=== PATIENT | female | born 1965 ===

== ENCOUNTER 2023-02-02 08:19 | Day surgery (SDC) | payer OTHER, SELFPAY ==
--- NOTE | ~2023-02-02 | FL_ITS ---
EXAMINATION: XR BARIUM ENEMA WITH AIR CLINICAL INFORMATION: Incomplete colonoscopy COMPARISON: None available. TECHNIQUE: Single contrast barium enema was performed. FINDINGS: Oral contrast reaches the cecum. There is no reflux into the terminal ileum. There is mild diverticulosis of the colon. No evidence of mass or obstruction is seen. FLUOROSCOPY TIME: Fluoroscopy time 1.6 minutes. 30 saved fluoroscopic images. 22 overhead images. Total dose 3 4 6 mgy. DAP 167 pringle per centimeter squared DOSE AREA PRODUCT: 167 pringle per centimeter squared. FL/FL barium enema w air contrast IMPRESSION: Mild diverticulosis of the colon.
--- OUTSIDE RECORDS SUMMARY | 2023-02-02 08:23 | XMS_ITS | Continuity of Care Document ---
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 Role Phone Anastasia Marquez MD Primary Care Physician [place] [facility] [place](s): 06/09/21 - 06/16/21 [facility] Adult [address] [place] [address]- Encounter Diagnosis Cough(Discharge Diagnosis) - 06/09/21 Attending Physician: Anastasia Marquez MD Allergies, Adverse Reactions, Alerts Substance Reaction Severity Status diclofenac Active Seafood Active Immunizations Given and Recorded Vaccine Date Status Refusal Reason SARS-CoV-2 (COVID-19) mRNA BNT-162b2 vac 11/13/20 Given SARS-CoV-2 (COVID-19) mRNA BNT-162b2 vac 10/23/20 Given influenza virus vaccine, inactivated 1 06/22/20 Gi deborah influenza virus vaccine, inactivated 05/28/15 Give n Influenza Virus Vaccine (oldterm) 06/20/19 Recorde d tetanus-diphtheria toxoids (Td) 05/28/15 Given Varicella Virus Vaccine 02/03/15 Recorded Measles/Mumps/Rubella Virus Vaccine 02/03/15 Recor ded Poliovirus Vaccine, Inactivated 66 Recorded Poliovirus Vaccine, Inactivated 66 Recorded BCG vaccine 66 Recorded 1Result Comment: [facility] [phone] Medications Advair Diskus 250 mcg-50 mcg inhalation powder 1, puffs, Inhalation, 2 times a day, # 60 each, Refills 0, Route to Pharmacy Electronically, [id number], [facility] [id number], 163, cm, 06/09/21 13:10:00 EDT, Height, 98, kg, 04/19/21 14:18:00 EDT, Dry Weight Start Date: 06/14/21 Status: Ordered Albuterol (Eqv-Proventil HFA) 90 mcg/inh inhalation aerosol 2 puffs, Inhalation, Every 6 hours, PRN NEEDED FOR WHEEZING/SOB, # 6.7 each, 5 Refills, [id number], 163, cm, 04/21/21 14:48:00 EDT, Height, 98, kg, 04/19/21 14:18:00 EDT, Dry Weight Start Date: 05/27/21 Status: Ordered amLODIPine 10 mg oral tablet 1 tablet, By Mouth, Daily, # 90 tablet, 1 Refills, [facility] 240[facility], 163, cm, 04/21/21 14:48:00 EDT,Height, 98, kg, 04/19/21 14:18:00 EDT, Dry Weight Start Date: 05/24/21 Status: Ordered codeine-guaifenesin 10 mg-100 mg/5 mL oral syrup 10 mL, By Mouth, Daily at bedtime, PRN Cough, for 12 days, # 60 mL, 0 Refills, Acute 06/27/21 16:12:00 EST, 06/15/21 16:12:00 EST, [facility]/pharmacy #[id number], Partial fill upon patient request if the prescription is for a schedule II opioid drug., 10 mL By Mo... Start Date: 06/15/21 Stop Date: 06/27/21 Status: Ordered CPAP Machine See Instructions, # 1 each, Refills 12, Tot. Refills 12, Maintenance, CPAP AUTO TITRATION @ 6-18 CMH20 ALL PAP SUPPLIES: TUBING, HEADGEAR, CHIN STRAP, CLIMATE CONTROL LINE, FULL FACE/NASAL MASK, HEATED HUMIDIFIER, WATER CHAMBER AND FILTERS DX BRUCE (... Start Date: 12/14/15 Status: Ordered loratadine 10 mg oral tablet 1, tablet, By Mouth, Daily, # 90 tablet, Refills 1, Tot. Refills 0, Maintenance, 02/18/21 15:11:00 EDT, Route to Pharmacy Electronically, [id number], 163, cm, 01/14/21 13:24:00 EDT, Height, 99, kg, 11/23/20 4:28:00 EDT, Dry Weight Start Date: 02/18/21 Status: Ordered losartan 50 mg oral tablet 50 mg, 1, tablet, By Mouth, Daily, # 90 tablet, Refills 1, Tot. Refills 1, Maintenance, 06/15/21 9:18:00 EST, Route to Pharmacy Electronically, [facility]/pharmacy #[id number], Partial fill upon patient request if the prescription is for a schedule II opioid drug.... Start Date: 06/15/21 Stop Date: 12/12/21 Status: Ordered Multivitamin By Mouth, Daily, 0 Refills, Maintenance, 06/08/15 13:58:35 Start Date: 06/08/15 Status: Ordered sertraline 50 mg oral tablet 1 tablet, By Mouth, Daily, # 90 tablet, 1 Refills, [facility] [id number], 163, cm, 04/21/21 14:48:00 EDT,Height, 98, kg, 04/19/21 14:18:00 EDT, Dry Weight Start Date: 05/24/21 Status: Ordered Problem List Condition Effective Dates Status Health Status Inform ant Hyperlipidemia(Confirmed) Active Hypertension(Confirmed) Active Major depression, recurrent(Confirmed) Active Diagnosis Diagnosis Type Effective Dates Health Status Clini domenic Service Informant Cough Discharge Diagnosis 06/09/21 Vital Signs Most recent to oldest [Reference Range]: 1 Height 163 cm (06/09/21 1:10 PM) Social History Social History Type Response Smoking Status Never smoker entered on: 05/14/15 Sex
--- OUTSIDE RECORDS SUMMARY | 2023-02-02 08:23 | XMS_ITS | Continuity of Care Document ---
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 [id number] Medications amLODIPine 10 mg oral tablet 10 mg, 1, tablet, By Mouth, Daily, # 90 tablet, Refills 1, Tot. Refills 1, Maintenance, 11/23/20 14:03:00 EDT, Route to Pharmacy Electronically, [facility]/pharmacy #[id number], 163, cm, 11/23/20 4:28:00 EDT, Height, 99, kg, 11/23/20 4:28:00 EDT, Dry Weight Start Date: 11/23/20 Status: Ordered Augmentin 875 mg-125 mg oral tablet 1 tablet, By Mouth, Every 12 hours, for 10 days, # 20 tablet, 0 Refills, Acute 12/03/20 4:14:00 EDT, 11/23/20 4:14:00 EDT, Tablet, [id number], Partial fill upon patient request if the prescription is for a schedule II opioid drug., 163, cm, 04... Start Date: 11/23/20 Stop Date: 12/03/20 Status: Ordered CPAP Machine See Instructions, # 1 each, Refills 12, Tot. Refills 12, Maintenance, CPAP AUTO TITRATION @ 6-18 CMH20 ALL PAP SUPPLIES: TUBING, HEADGEAR, CHIN STRAP, CLIMATE CONTROL LINE, FULL FACE/NASAL MASK, HEATED HUMIDIFIER, WATER CHAMBER AND FILTERS DX BRUCE (... Start Date: 12/14/15 Status: Ordered Fish Oil 1000 mg oral capsule 1 capsule = 1,000 mg, By Mouth, Daily, # 90 capsule, 0 Refills, Maintenance, 11/07/19 10:55:00 EDT,[facility], 158, cm, 10/29/19 14:34:00 EDT, Height Start Date: 11/07/19 Status: Ordered Macrobid macrocrystals-monohydrate 100 mg oral capsule 1 capsule = 100 mg, By Mouth, 2 times a day, for 7 days, # 14 capsule, 0 Refills, Acute 11/29/20 11:10:00 EDT, 11/22/20 11:10:00 EDT, Capsule, [id number], Partial fill upon patient request ifthe prescription is for a schedule II opioid drug.,... Start Date: 11/22/20 Stop Date: 11/29/20 Status: Ordered Multivitamin By Mouth, Daily, 0 Refills, Maintenance, 06/08/15 13:58:35 Start Date: 06/08/15 Status: Ordered Zoloft 50 mg oral tablet 1 tablet = 50 mg, By Mouth, Daily, # 90 tablet, 1 Refills, Maintenance, 11/23/20 13:18:00 EDT, Tablet, [id number], 163, cm, 11/23/20 4:28:00 EDT, Height, 99, kg, 11/23/20 4:28:00 EDT, Dry Weight Start Date: 11/23/20 Status: Ordered Problem List Condition Effective Dates Status Health Status Inform ant Hyperlipidemia(Confirmed) Active Hypertension(Confirmed) Active Major depression, recurrent(Confirmed) Active Vital Signs Most recent to oldest [Reference Range]: 1 2 Height 163 cm (11/23/20 4:28 AM) 163 cm (11/23/20 2:24 AM) Weight 99 kg (11/23/20 4:28 AM) 99 kg (11/23/20 2:24 AM) Oxygen Saturation [94-100 %] 97 % (11/23/20 4:28 AM) 94 % (11/23/20 2:24 AM) Pulse Rate [55-90 bpm] 87 bpm (11/23/20 4:28 AM) 84 bpm (11/23/20 2:24 AM) Body Mass Index [18.5-24.99] 37.26 *>HHI* (11/23/20 4:28 AM) Blood Pressure [90-138/55-84 mm Hg] 132/ 77mm Hg (11/23/20 4:28 AM) 139/80mm Hg *H* (11/23/20 2:24 AM) Respiratory Rate [16-30 br/min] 18 br/mi n (11/23/20 4:28 AM) 18 br/min (11/23/20 2:24 AM) Temperature [96.8-100.4 DegF] 98.2 DegF (11/23/20 2:24 AM) Mode of Delivery (Oxygen) Room air (11/23/20 4:28 AM) Room air (11/23/20 2:24 AM) Blood pressure sites Arm, left (11/23/20 4:28 AM) Arm, left (11/23/20 2:24 AM) Temperature Route Oral (11/23/20 2:24 AM) Dry Weight 99 kg (11/23/20 4:28 AM) 99 kg (11/23/20 2:24 AM) Weight Obtained Via Standing scale (11/23/20 2:24 AM) Social History Social History Type Response Smoking Status Never smoker entered on: 05/14/15 Sex
--- OUTSIDE RECORDS SUMMARY | 2023-02-02 08:23 | XMS_ITS | Continuity of Care Document ---
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 Refills 1, Maintenance, 11/23/20 14:03:00 EDT, Route to Pharmacy Electronically, [facility]/pharmacy #[id number], 163, cm, 11/23/20 4:28:00 EDT, Height, 99, kg, 11/23/20 4:28:00 EDT, Dry Weight Start Date: 11/23/20 Status: Ordered CPAP Machine See Instructions, # [...] EDT, Height Start Date: 11/07/19 Status: Ordered Multivitamin By Mouth, Daily, 0 Refills, Maintenance, 06/08/15 13:58:35 Start Date: 06/08/15 Status: Ordered Zoloft 50 mg oral tablet 1 tablet = 50 mg, By Mouth, Daily, # 90 tablet, 1 Refills, Maintenance, 11/23/20 13:18:00 EDT, Tablet, [facility]/pharmacy #[id number], 163, cm, 11/23/20 4:28:00 EDT, Height, 99, kg, 11/23/20 4:28:00 EDT, Dry Weight Start Date: 11/23/20 Status: Ordered Problem List Condition Effective Dates Status Health Status Inform ant Hyperlipidemia(Confirmed) Active Hypertension(Confirmed) Active Major depression, recurrent(Confirmed) Active Social History Social History Type Response Smoking Status Never smoker entered on: 05/14/15 Sex
--- OUTSIDE RECORDS SUMMARY | 2023-02-02 08:23 | XMS_ITS | Continuity of Care Document ---
Author Name Unknown Organization [facility] Adult Address [address] [place] [address]- Care Team Providers Care Patent Agent Name Role Phone Anastasia Marquez MD Primary Care Physician Encounter [facility] Date(s): 04/21/21 - 05/21/21 [facility] Adult [address] [place] [address]- Attending Physician: Rasheeda Castro Admitting Physician: AdmtrRasheeda Referring Physician: Admtr, Ar8 Allergies, Adverse Reactions, Alerts Substance Reaction Severity [...] Recorded BCG vaccine 66 Recorded 1Result Comment: [facility] [phone] Medications Advair Diskus 250 mcg-50 mcg inhalation powder 1, puffs, Inhalation, 2 times a day, # 60 each, Refills 0, Route to Pharmacy Electronically, [id number], [facility] ST[facility] [id number], 163, cm, 04/21/21 14:48:00 EDT, Height, 98, kg, 04/19/21 14:18:00 EDT, Dry Weight Start Date: 05/18/21 Status: Ordered Albuterol (Eqv-Proventil HFA) 90 mcg/inh inhalation aerosol 2 puffs, Inhalation, Every 6 hours, PRN NEEDED FOR WHEEZING/SOB, # 6.7 each, 0 Refills, [facility]3347, 163, cm, 04/21/21 14:48:00 EDT, Height, 98, kg, 04/19/21 14:18:00 EDT, Dry Weight Start Date: 05/04/21 Status: Ordered amLODIPine 10 mg oral tablet 10 mg, 1, tablet, By Mouth, Daily, # 90 tablet, Refills 1, Tot. Refills 1, Maintenance, 11/23/20 14:03:00 EDT, Route to Pharmacy Electronically, [facility]/pharmacy #[id number], 163, cm, 11/23/20 4:28:00 EDT, [...] EDT, Height Start Date: 11/07/19 Status: Ordered lisinopril 10 mg oral tablet 10 mg, 1, tablet, By Mouth, Daily, # 90 tablet, Refills 3, Tot. Refills 3, Maintenance, 01/14/21 14:16:00 EDT, Route to Pharmacy Electronically, [facility]/pharmacy #[id number], Partial fill upon patient request if the prescription is for a schedule II opioid drug... Start Date: 01/14/21 Status: Ordered loratadine 10 mg oral tablet 1, tablet, By Mouth, Daily, # 90 tablet, Refills 1, Tot. Refills 0, Maintenance, 02/18/21 15:11:00 EDT, Route to Pharmacy Electronically, [id number], 163, cm, 01/14/21 13:24:00 EDT, Height, 99, kg, 11/23/20 4:28:00 EDT, Dry Weight Start Date: 02/18/21 Status: Ordered Multivitamin By Mouth, Daily, 0 Refills, Maintenance, 06/08/15 13:58:35 Start Date: 06/08/15 Status: Ordered predniSONE 10 mg oral tablet 6 tablet = 60 mg, By Mouth, Daily, 6 tabs qday for 2 days; then 5 for 2 days, then 4, then 3, then 2, then 1, # 42 tablet, 0 Refills, Maintenance, 04/19/21 14:23:00 EDT, Tablet, [facility]/pharmacy #[id number], Partial fill upon patient request if the prescription... Start Date: 04/19/21 Status: Ordered Zoloft 50 mg oral tablet 1 tablet = 50 mg, By Mouth, Daily, # 90 tablet, 1 Refills, Maintenance, 11/23/20 13:18:00 EDT, Tablet, [facility]/pharmacy #[id number], 163, cm, 11/23/20 4:28:00 EDT, Height, 99, kg, 11/23/20 4:28:00 EDT, Dry Weight Start Date: 11/23/20 Status: Ordered Problem List Condition Effective Dates Status Health Status Inform ant Hyperlipidemia(Confirmed) Active Hypertension(Confirmed) Active Major depression, recurrent(Confirmed) Active Social History Social History Type Response Smoking Status Never smoker entered on: 05/14/15 Sex
--- OUTSIDE RECORDS SUMMARY | 2023-02-02 08:23 | XMS_ITS | Continuity of Care Document ---
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 Mortgage Loan Specialist Name Role Phone Jimmy DELATORRE, Anastasia Primary Care Physician [place] [facility]14[place]21 - 07/14/21 [facility] [address] [place] [address]- Allergies, Adverse Reactions, Alerts Substance Reaction Severity Status diclofenac Active Seafood Active Immunizations Given and Recorded Vaccine Date Status Refusal Reason influenza virus vaccine, inactivated 1 06/27/21 Gi deborah influenza virus vaccine, inactivated 2 06/22/20 Gi deborah influenza virus vaccine, inactivated 05/28/15 Give n SARS-CoV-2 (COVID-19) mRNA BNT-162b2 vac 11/13/20 Given SARS-CoV-2 (COVID-19) mRNA BNT-162b2 vac 10/23/20 Given Influenza Virus Vaccine (oldterm) 06/20/19 Recorde d tetanus-diphtheria toxoids (Td) 05/28/15 Given Varicella Virus Vaccine 02/03/15 Recorded Measles/Mumps/Rubella Virus Vaccine 02/03/15 Recor ded Poliovirus Vaccine, Inactivated 66 Recorded Poliovirus Vaccine, Inactivated 66 Recorded BCG vaccine 66 Recorded 1Result Comment: [facility] [id number] 2Result Comment: [facility] [id number] Medications Albuterol (Eqv-Proventil HFA) 90 mcg/inh inhalation aerosol 2 puffs, Inhalation, Every 6 hours, PRN NEEDED FOR WHEEZING/SOB, # 6.7 each, 5 Refills, [facility] 6[facility]75, 163, cm, 04/21/21 14:48:00 EDT, Height, 98, kg, 04/19/21 14:18:00 EDT, Dry Weight Start Date: 05/27/21 Status: Ordered amLODIPine 10 mg oral tablet 1 tablet, By Mouth, Daily, # 90 tablet, 1 Refills, [facility]662, 163, cm, 04/21/21 14:48:00 EDT,Height, 98, kg, 04/19/21 14:18:00 EDT, Dry Weight Start Date: 05/24/21 Status: Ordered CPAP Machine See Instructions, # [...] 02/18/21 15:11:00 EDT, Route to Pharmacy Electronically, [facility] [id number], 163, cm, 01/14/21 13:24:00 EDT, Height, 99, kg, 11/23/20 4:28:00 EDT, Dry Weight Start Date: 02/18/21 Status: Ordered losartan 50 mg oral tablet 50 mg, 1, tablet, By Mouth, Daily, # 90 tablet, Refills 1, Tot. Refills 1, Maintenance, 06/15/21 9:18:00 EST, Route to Pharmacy Electronically, [facility]/pharmacy #[id number], Partial fill upon patient request if the prescription is for a schedule II opioid drug.... Start Date: 06/15/21 Stop Date: 12/12/21 Status: Ordered Multivitamin By Mouth, Daily, 0 Refills, Maintenance, 06/08/15 13:58:35 Start Date: 06/08/15 Status: Ordered sertraline 50 mg oral tablet 1 tablet, By Mouth, Daily, # 90 tablet, 1 Refills, [id number], 163, cm, 04/21/21 14:48:00 EDT,Height, 98, kg, 04/19/21 14:18:00 EDT, Dry Weight Start Date: 05/24/21 Status: Ordered Problem List Condition Effective Dates Status Health Status Inform ant Hyperlipidemia(Confirmed) Active Hypertension(Confirmed) Active Obese class II(Confirmed) Active Major depression, recurrent(Confirmed) Active Social History Social History Type Response Smoking Status Never smoker entered on: 05/14/15 Sex
--- OUTSIDE RECORDS SUMMARY | 2023-02-02 08:23 | XMS_ITS | Continuity of Care Document ---
Author Name Unknown Organization [facility] Address [address] [place] [address]- Care Team Providers Care Field Sales Trainer Name Role Phone Anastasia Marquez MD Primary Care Physician [place] [facility] [place] 06/19/22 - 06/26/22 [facility] [address] [place] [address]- Encounter Diagnosis Hypertension(Discharge Diagnosis) - 06/19/22 Attending Physician: Anastasia Marquez MD Allergies, Adverse Reactions, Alerts Substance Reaction Severity Status diclofenac Active Seafood Active Immunizations Given and Recorded Vaccine Date Status Refusal Reason influenza virus vaccine, inactivated 1 06/19/22 Gi deborah influenza virus vaccine, inactivated 2 06/27/21 Gi deborah influenza virus vaccine, inactivated 3 06/22/20 Gi deborah influenza virus vaccine, inactivated 05/07/19 Richard rded influenza virus vaccine, inactivated 05/28/15 Give n [id number] 12y+ bivalent booster vax 05/12/22 Recorded SARS-CoV-2 mRNA ([id number]) vax 03/02/22 Recorded SARS-CoV-2 (COVID-19) mRNA BNT-162b2 vac 05/28/21 Recorded SARS-CoV-2 (COVID-19) mRNA BNT-162b2 vac 11/13/20 Given SARS-CoV-2 (COVID-19) mRNA BNT-162b2 vac 10/23/20 Given Influenza Virus Vaccine (oldterm) 06/20/19 Recorde d tetanus-diphtheria toxoids (Td) 05/28/15 Given Varicella Virus Vaccine 02/03/15 Recorded Measles/Mumps/Rubella Virus Vaccine 02/03/15 Recor ded Poliovirus Vaccine, Inactivated 66 Recorded Poliovirus Vaccine, Inactivated 66 Recorded BCG vaccine 66 Recorded 1Result Comment: [facility]: [id number] 2Result Comment: [facility] [id number] 3Result Comment: [facility] [phone] Medications Albuterol (Eqv-Proventil HFA) 90 mcg/inh inhalation aerosol 2 puffs, Inhalation, Every 6 hours, PRN NEEDED FOR WHEEZING/SOB, # 6.7 each, 5 Refills, [facility], 163, cm, 04/21/21 14:48:00 EDT, Height, 98, kg, 04/19/21 14:18:00 EDT, Dry Weight Start Date: 05/27/21 Status: Ordered amLODIPine 10 mg oral tablet 1 tablet, By Mouth, Daily, # 90 tablet, 0 Refills, Maintenance, 05/04/22 15:35:00 EDT, [facility], 163, cm, 07/01/21 16:10:00 EST, Height, 98, kg, 04/19/21 14:18:00 EDT, Dry Weight Start Date: 05/04/22 Status: Ordered atenolol 50 mg oral tablet 50 mg, 1, tablet, By Mouth, Daily, # 90 tablet, Refills 1, Tot. Refills 1, Maintenance, 06/19/22 16:39:00 EST, Route to Pharmacy Electronically, [facility]/pharmacy #[id number], Partial fill upon patient request if the prescription is for a schedule II opioid drug... Start Date: 06/19/22 Status: Ordered CPAP Machine See Instructions, # 1 each, Refills 12, Tot. Refills 12, Maintenance, CPAP AUTO TITRATION @ 6-18 CMH20 ALL PAP SUPPLIES: TUBING, HEADGEAR, CHIN STRAP, CLIMATE CONTROL LINE, FULL FACE/NASAL MASK, HEATED HUMIDIFIER, WATER CHAMBER AND FILTERS DX BRUCE (... Start Date: 12/14/15 Status: Ordered Flovent HFA 44 mcg/inh inhalation aerosol 2 puffs, Inhalation, 2 times a day, # 11 Gm, 6 Refills, Maintenance, 07/01/21 16:54:00 EST, Aerosol, [facility]/pharmacy #[id number], Partial fill upon patient request if the prescription is for a schedule II opioid drug., 163, cm, 07/01/21 16:10:00 EST, Height, 9... Start Date: 07/01/21 Status: Ordered loratadine 10 mg oral tablet See Instructions, TAKE 1 TABLET BY MOUTH EVERY DAY, # 90 tablet, Refills 1, Instructions Replace Required Details, Route to Pharmacy Electronically, [id number], 163, cm, 07/01/21 16:10:00 EST, Height, 98, kg, 04/19/21 14:18:00 EDT, Dry Weight Start Date: 02/10/22 Status: Ordered losartan 100 mg oral tablet 1 tablet = 100 mg, By Mouth, Daily, # 90 tablet, 1 Refills, Maintenance, 06/19/22 16:38:00 EST, Tablet, [facility]/pharmacy #[id number], Partial fill upon patient request if the prescription is for a schedule II opioid drug., 163, cm, 06/19/22 16:32:00 EST, Height... Start Date: 06/19/22 Status: Ordered Multivitamin By Mouth, Daily, 0 Refills, Maintenance, 06/08/15 13:58:35 Start Date: 06/08/15 Status: Ordered sertraline 50 mg oral tablet 1 tablet, By Mouth, Daily, # 90 tablet, 0 Refills, Maintenance, 05/04/22 15:35:00 EDT, [facility], 163, cm, 07/01/21 16:10:00 EST, Height, 98, kg, 04/19/21 14:18:00 EDT, Dry Weight Start Date: 05/04/22 Status: Ordered Problem List Condition Confirmation Course Effective Dates Status H ealth Status Informant Hyperlipidemia Confirmed Active Hypertension Confirmed Active Obese class II Confirmed Active Major depression, recurrent Confirmed Active Diagnosis Diagnosis Type Effective Dates Health Status inical Service Informant Hypertension Discharge Diagnosis 06/19/22 Vital Signs Most recent to oldest [Reference Range]: 1 2 Height 163 cm (06/19/22 4:32 PM) 163 cm (06/19/22 4:20 PM) Weight 101.9 kg (06/19/22 4:20 PM) Oxygen Saturation [94-100 %] 97 % (06/19/22 4:20 PM) Pulse Rate [55-90 bpm] 83 bpm (06/19/22 4:20 PM) Body Mass Index [18.5-24.99 kg/m2] 38.35 kg/m2 *>HHI* (06/19/22 4:20 PM) Blood Pressure [90-138/55-84 mm Hg] 143/ 81mm Hg *H* (06/19/22 4:32 PM) 147/83mm Hg *H* (06/19/22 4:20 PM) Temperature [96.8-100.4 DegF] 98.3 DegF (06/19/22 4:20 PM) Mode of Delivery (Oxygen) Room air (06/19/22 4:20 PM) Blood pressure sites Arm, left (06/19/22 4:32 PM) Arm, left (06/19/22 4:20 PM) Temperature Route Oral (06/19/22 4:20 PM) Weight Obtained Via Standing scale (06/19/22 4:20 PM) Social History Social History Type Response Smoking Status Never smoker entered on: 05/14/15 Sex Note * Rossana Durant: PERFORM, SIGN, VERIFY Event Display: Patient Education/Instruction Authored Date: [id number] [facility] [place] *[facility] Clinical Summary Name SULLY HIDALGO Age 56 Years 1965 PCP Anastasia Marquez MD PCP Visit Date 06/19/2022 15:22:00 Additional Instructions: Scheduled Appointments?? Future Appointments ?*[facility] ?[address],??[place],??[address] ?Phone:??--?Fax:??-- ?Appt. Date:??07/27/2022?3:45 PM ?Scheduled Provider:??Anastasia Marquez MD Follow-Up Instructions ?? Diagnosis Medications: Please continue your medications until treatment is completed or stopped by your provider. Discuss any questions related to medications with your provider. New Medications [id number] [address], [place] [id number], [phone] Atenolol (atenolol 50 mg oral tablet) 1 tab(s) Oral Daily. Refills: 1. Next Dose: Medications to Continue Taking That Have Changed [facility], [address], [place] [phone], [phone] - Losartan (losartan 100 mg oral tablet) 1 tab(s) Oral Daily. Refills: 1. Next Dose: Medications to Continue with No Changes These medications were not printed or sent to your pharmacy Albuterol (Albuterol (Eqv-Proventil HFA) 90 mcg/inh inhalation aerosol) 2 puff(s) Inhalation every 6 hours as needed NEEDED FOR WHEEZING/SOB. Refills: 5. Next Dose: Amlodipine (amLODIPine 10 mg oral tablet) 1 tab(s) Oral Daily. Refills: 0. Next Dose: Durable Medical Equipment (CPAP Machine) CPAP AUTO TITRATION @ 6-18 CM H20 ALL PAP SUPPLIES: TUBING, HEADGEAR, CHIN STRAP, CLIMATE CONTROL LINE, FULL FACE/NASAL MASK, HEATED HUMIDIFIER, WATER CHAMBER AND FILTERS DX [facility] BH[facility]. Refills: 12. Next Dose: Fluticasone (Flovent HFA 44 mcg/inh inhalation aerosol) 2 puff(s) Inhalation twice a day. Refills: 6. Next Dose: Loratadine (loratadine 10 mg oral tablet) TAKE 1 TABLET BY MOUTH EVERY DAY. Refills: 1. Next Dose: Multivitamin Oral Daily. Next Dose: Sertraline (sertraline 50 mg oral tablet) 1 tab(s) Oral Daily. Refills: 0. Next Dose: Allergy Info:?? Seafood; diclofenac Medications Given This Visit Medication Dose Route influenza virus vaccine, inactivated (influenza virus, inactivated vacc) 0.5 mL Intramuscular Future Orders ?No future orders Vital Signs Height 163 cm Weight 101.9 kg BMI 38.35 kg/m2 Blood Pressure 143 mm Hg/81 mm Hg Temperature 98.3 DegF Pulse Rate 83 bpm Respiratory Rate 02 Sat Mode of Delivery 97 %/Room air You can now view a summary of your hospital visit from the comfort of your home through a free online portal called [employer]. [employer] is a website that allows you to securely view your medical information including discharge summary, medications and follow-up visits. ??You can alsosend a secure electronic message to your doctor???s office to request appointments, renew medications or just ask a question. You can enroll at [email or web address] or register during your next office visit. Disclaimer:?? The information provided is of a general nature and is intended to be used in conjunction with the recommendations and advice of your health care practitioner. ??Every effort has been made to ensure that the information provided is accurate and complete at the time it is provided to you however, as your needs change, or, as new ??information becomes available, different or additional instructions may be required. If you have questions, please consult with your primary care provider or pharmacist, as appropriate. ??This information is not intended to serve as substitution for assessment and evaluation by a qualified health care provider. If you do not have a primary care provider, you may find a [facility] provider by calling [facility] [employer] [facility] at [phone]. For information about the plan of care including goals and instructions for your diagnosis, please see the patient education orders section of this document. Patient Education Materials?? The content of this educational material or handout may have been modified, supplemented, or adapted from its original content and format to support your individualized medical care. Patient Care team information Care Team Personnel Name: Anastasia Marquez MD Position: [facility] Primary Care Physician Member Role: PCP Address: Address: [address] [place] [address]- Care Team Related Persons Name: BRANDON ZELAYA Address: home [address] [place] [address]
--- OUTSIDE RECORDS SUMMARY | 2023-02-02 08:23 | XMS_ITS | Continuity of Care Document ---
Author Name Unknown Organization [facility] Address [address] [place] [address]- Care Team Providers Care Head Of Transport Logistics Name Role Phone Jimmy DELATORRE, Anastasia Primary Care Physician [phone] [place] [facility] [place] 08[place]18/21 [facility] [address] [place] [address]- Attending Physician: Anastasia Marquez MD Allergies, Adverse [...] Recorded BCG vaccine 66 Recorded 1Result Comment: [facility] [id number] 2Result Comment: [facility] [phone] Medications Albuterol (Eqv-Proventil HFA) 90 mcg/inh inhalation aerosol 2 puffs, Inhalation, Every 6 hours, PRN NEEDED FOR WHEEZING/SOB, # 6.7 each, 5 Refills, [facility], 163, cm, 04/21/21 14:48:00 EDT, Height, 98, kg, 04/19/21 14:18:00 EDT, Dry Weight Start Date: 05/27/21 Status: Ordered amLODIPine 10 mg oral tablet 1 tablet, By Mouth, Daily, # 90 tablet, 1 Refills, [facility], 163, cm, 04/21/21 14:48:00 EDT,Height, 98, kg, [...] Mouth, Daily, # 90 tablet, Refills 1, Route to Pharmacy Electronically, [facility] 24280, 163, cm, 07/01/21 16:10:00 EST, Height, 98, kg, 04/19/21 14:18:00 EDT, Dry Weight Start Date: 08/16/21 Status: Ordered losartan 50 mg oral tablet 50 mg, 1, tablet, By Mouth, Daily, # 90 tablet, Refills 1, Tot. Refills 1, Maintenance, 06/15/21 9:18:00 EST, Route to Pharmacy Electronically, [facility]/pharmacy #[id number], Partial fill upon patient request if the prescription is for a schedule II opioid drug.... Start Date: 06/15/21 Stop Date: 12/12/21 Status: Ordered Multivitamin By Mouth, Daily, 0 Refills, Maintenance, 06/08/15 13:58:35 Start Date: 06/08/15 Status: Ordered sertraline 50 mg oral tablet 1 tablet, By Mouth, Daily, # 90 tablet, 1 Refills, [facility] 8[facility]96, 163, cm, 04/21/21 14:48:00 EDT,Height, 98, kg, 04/19/21 14:18:00 EDT, Dry Weight Start Date: 05/24/21 Status: Ordered Problem List Condition Effective Dates Status Health Status Inform ant Hyperlipidemia(Confirmed) Active Hypertension(Confirmed) Active Obese class II(Confirmed) Active Major depression, recurrent(Confirmed) Active Social History Social History Type Response Smoking Status Never smoker entered on: 05/14/15 Sex
--- OUTSIDE RECORDS SUMMARY | 2023-02-02 08:23 | XMS_ITS | Continuity of Care Document ---
Author Name Unknown Organization [facility] Address [address] [place] [address]- Care Team Providers Care Sound Effects Person Name Role Phone Jimmy DELATORRE, Anastasia Primary Care Physician [phone] Encounter [facility] Date(s): 12/13/20 - 01/12/21 [facility] [address] [place] [id number] Attending Physician: AdmRasheeda stafford Admitting Physician: Admtr, Ar8 Referring Physician: Admtr, Ar8 Allergies, Adverse Reactions, [...] Recorded BCG vaccine 66 Recorded 1Result Comment: [facility] [phone] Medications amLODIPine 10 mg oral tablet 10 mg, 1, tablet, By Mouth, Daily, # 90 tablet, Refills 1, Tot. Refills 1, Maintenance, 11/23/20 14:03:00 EDT, Route to Pharmacy Electronically, [facility]/pharmacy #[id number], 163, cm, 11/23/20 4:28:00 EDT, Height, [...] Refills, Maintenance, 11/23/20 13:18:00 EDT, Tablet, [facility]/pharmacy #0315, 163, cm, 11/23/20 4:28:00 EDT, Height, 99, kg, 11/23/20 4:28:00 EDT, Dry Weight Start Date: 11/23/20 Status: Ordered Problem List Condition Effective Dates Status Health Status Inform ant Hyperlipidemia(Confirmed) Active Hypertension(Confirmed) Active Major depression, recurrent(Confirmed) Active Social History Social History Type Response Smoking Status Never smoker entered on: 05/14/15 Sex
--- OUTSIDE RECORDS SUMMARY | 2023-02-02 08:23 | XMS_ITS | Continuity of Care Document ---
Author Name Unknown Organization [facility] Address [address] [place] [address]- Care Team Providers Care Waste Handling Technician Name Role Phone Jimmy DELATORRE, Anastasia Primary Care Physician [place] [facility] [place]s): 03/31/21 - 04/30/21 [facility] [address] [place] [address]- Allergies, Adverse Reactions, Alerts Substance Reaction Severity [...] Recorded BCG vaccine 66 Recorded 1Result Comment: [facility] [phone] Medications Advair Diskus 250 mcg-50 mcg inhalation powder 1, puffs, Inhalation, 2 times a day, # 60 each, Refills 0, Tot. Refills 0, Maintenance, 04/21/21 16:25:00 EDT, Powder, Route to Pharmacy Electronically, [id number], [facility]/pharmacy #[id number], 163, cm, 04/21/21 14:48:00 EDT, Height,... Start Date: 04/21/21 Status: Ordered albuterol CFC free 90 mcg/inh inhalation aerosol 2, puffs, Inhalation, Every 6 hours, PRN, # 1 each, Refills 0, Tot. Refills 0, Maintenance, 04/07/21 15:35:00 EDT, Route to Pharmacy Electronically, [id number], [facility]/pharmacy#0315, 163, cm, 04/07/21 12:12:00 EDT, Height, 99,... Start Date: 04/07/21 Status: Ordered amLODIPine 10 mg oral tablet 10 mg, 1, tablet, By Mouth, Daily, # 90 tablet, Refills 1, Tot. Refills 1, Maintenance, 11/23/20 14:03:00 EDT, Route to Pharmacy Electronically, [facility]/pharmacy #0315, 163, cm, 11/23/20 4:28:00 EDT, Height, [...] 0 Refills, Maintenance, 11/07/19 10:55:00 EDT,[facility], 158, cm, 10/29/19 14:34:00 EDT, Height Start Date: 11/07/19 Status: Ordered lisinopril 10 mg oral tablet 10 mg, 1, tablet, By Mouth, Daily, # 90 tablet, Refills 3, Tot. Refills 3, Maintenance, 01/14/21 14:16:00 EDT, Route to Pharmacy Electronically, [facility]/pharmacy #[id number], Partial fill upon patient request if the prescription is for a schedule II opioid drug... Start Date: 01/14/21 Status: Ordered loratadine 10 mg oral tablet 1, tablet, By Mouth, Daily, # 90 tablet, Refills 1, Tot. Refills 0, Maintenance, 02/18/21 15:11:00 EDT, Route to Pharmacy Electronically, [facility] STORE 88820, 163, cm, 01/14/21 13:24:00 EDT, Height, 99, [...] 0 Refills, Maintenance, 04/19/21 14:23:00 EDT, Tablet, [facility]/pharmacy #0315, Partial fill upon patient request if the prescription... Start Date: 04/19/21 Status: Ordered Zoloft 50 mg oral tablet 1 tablet = 50 mg, By Mouth, Daily, # 90 tablet, 1 Refills, Maintenance, 11/23/20 13:18:00 EDT, Tablet, [facility]/pharmacy #0315, 163, cm, 11/23/20 4:28:00 EDT, Height, 99, kg, 11/23/20 4:28:00 EDT, Dry Weight Start Date: 11/23/20 Status: Ordered Problem List Condition Effective Dates Status Health Status Inform ant Hyperlipidemia(Confirmed) Active Hypertension(Confirmed) Active Major depression, recurrent(Confirmed) Active Social History Social History Type Response Smoking Status Never smoker entered on: 05/14/15 Sex
--- OUTSIDE RECORDS SUMMARY | 2023-02-02 08:23 | XMS_ITS | Continuity of Care Document ---
Author Name Unknown Organization [facility] Address [address] [place] [address]- Care Team Providers Care Manager Culinary Name Role Phone Jimmy DELATORRE, Anastasia Primary Care Physician Encounter [facility] [place] Date(s): 01/21/21 - 02/20/21 [facility] [address] [place] [address]- Attending Physician: Rasheeda Castro Admitting Physician: Rasheeda Castro Referring Physician: AdmtrRasheeda Allergies, Adverse Reactions, Alerts Substance Reaction Severity [...] Recorded BCG vaccine 66 Recorded 1Result Comment: [facility] [id number] Medications amLODIPine 10 mg oral tablet 10 mg, 1, tablet, By Mouth, Daily, # 90 tablet, Refills 1, Tot. Refills 1, Maintenance, 11/23/20 14:03:00 EDT, Route to Pharmacy Electronically, [facility]/pharmacy #0315, 163, cm, 11/23/20 4:28:00 EDT, Height, [...] 01/14/21 14:16:00 EDT, Route to Pharmacy Electronically, [facility]/pharmacy #0315, Partial fill upon patient request if the prescription is for a schedule II opioid drug... Start Date: 01/14/21 Status: Ordered loratadine 10 mg oral tablet 1, tablet, By Mouth, Daily, # 90 tablet, Refills 1, Tot. Refills 0, Maintenance, 02/18/21 15:11:00 EDT, Route to Pharmacy Electronically, [facility] ST[facility] 37698, 163, cm, 01/14/21 13:24:00 EDT, Height, 99, kg, 11/23/20 4:28:00 EDT, Dry Weight Start Date: 02/18/21 Status: Ordered Multivitamin By Mouth, Daily, 0 Refills, Maintenance, 06/08/15 13:58:35 Start Date: 06/08/15 Status: Ordered Zoloft 50 mg oral tablet 1 tablet = 50 mg, By Mouth, Daily, # 90 tablet, 1 Refills, Maintenance, 11/23/20 13:18:00 EDT, Tablet, [facility]/pharmacy #0315, 163, cm, 11/23/20 4:28:00 EDT, Height, 99, kg, 11/23/20 4:28:00 EDT, Dry Weight Start Date: 11/23/20 Status: Ordered Problem List Condition Effective Dates Status Health Status Inform ant Hyperlipidemia(Confirmed) Active Hypertension(Confirmed) Active Major depression, recurrent(Confirmed) Active Social History Social History Type Response Smoking Status Never smoker entered on: 05/14/15 Sex
--- OUTSIDE RECORDS SUMMARY | 2023-02-02 08:23 | XMS_ITS | Continuity of Care Document ---
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 Name Role Phone Jimmy DELATORRE, Anastasia Primary Care Physician En[place] [facility] [place] Date(s): 06/21/21 - 07/21/21 [facility] [address] [place] [address]- Allergies, Adverse Reactions, Alerts Substance Reaction Severity [...] Recorded BCG vaccine 66 Recorded 1Result Comment: [facility] [id number] 2Result Comment: [facility] [phone] Medications Albuterol (Eqv-Proventil HFA) 90 mcg/inh inhalation aerosol 2 puffs, Inhalation, Every 6 hours, PRN NEEDED FOR WHEEZING/SOB, # 6.7 each, 5 Refills, [facility] 8[facility]74, 163, cm, 04/21/21 14:48:00 EDT, Height, 98, kg, 04/19/21 14:18:00 EDT, Dry Weight Start Date: 05/27/21 Status: Ordered amLODIPine 10 mg oral tablet 1 tablet, By Mouth, Daily, # 90 tablet, 1 Refills, [facility] 7[facility], 163, cm, 04/21/21 14:48:00 EDT,Height, 98, kg, [...] 02/18/21 15:11:00 EDT, Route to Pharmacy Electronically, [facility] 44961, 163, cm, 01/14/21 13:24:00 EDT, Height, 99, kg, 11/23/20 4:28:00 EDT, Dry Weight Start Date: 02/18/21 Status: Ordered losartan 50 mg oral tablet 50 mg, 1, tablet, By Mouth, Daily, # 90 tablet, Refills 1, Tot. Refills 1, Maintenance, 06/15/21 9:18:00 EST, Route to Pharmacy Electronically, [facility]/pharmacy #6025, Partial fill upon patient request if the prescription is for a schedule II opioid drug.... Start Date: 06/15/21 Stop Date: 12/12/21 Status: Ordered Multivitamin By Mouth, Daily, 0 Refills, Maintenance, 06/08/15 13:58:35 Start Date: 06/08/15 Status: Ordered sertraline 50 mg oral tablet 1 tablet, By Mouth, Daily, # 90 tablet, 1 Refills, [facility] 91488, 163, cm, 04/21/21 14:48:00 EDT,Height, 98, kg, 04/19/21 14:18:00 EDT, Dry Weight Start Date: 05/24/21 Status: Ordered Problem List Condition Effective Dates Status Health Status Inform ant Hyperlipidemia(Confirmed) Active Hypertension(Confirmed) Active Obese class II(Confirmed) Active Major depression, recurrent(Confirmed) Active Social History Social History Type Response Smoking Status Never smoker entered on: 05/14/15 Sex
--- OUTSIDE RECORDS SUMMARY | 2023-02-02 08:23 | XMS_ITS | Continuity of Care Document ---
Author Name Unknown Organization [facility] Address [address] [place] [address]- Care Team Providers Care Director Internal Communications Name Role Phone Jimmy DELATORRE, Anastasia Primary Care Physician [place] [facility] [place] Date(s): 06/21/21 - 07/21/21 [facility] [address] [place] [address]- Allergies, Adverse Reactions, Alerts Substance Reaction Severity [...] Recorded BCG vaccine 66 Recorded 1Result Comment: [facility] [id number] 2Result Comment: [facility] [phone] Medications Albuterol (Eqv-Proventil HFA) 90 mcg/inh inhalation aerosol 2 puffs, Inhalation, Every 6 hours, PRN NEEDED FOR WHEEZING/SOB, # 6.7 each, 5 Refills, [facility] 87944, 163, cm, 04/21/21 14:48:00 EDT, Height, 98, kg, 04/19/21 14:18:00 EDT, Dry Weight Start Date: 05/27/21 Status: Ordered amLODIPine 10 mg oral tablet 1 tablet, By Mouth, Daily, # 90 tablet, 1 Refills, [facility] 54238, 163, cm, 04/21/21 14:48:00 EDT,Height, 98, kg, [...] 02/18/21 15:11:00 EDT, Route to Pharmacy Electronically, [facility] 45296, 163, cm, 01/14/21 13:24:00 EDT, Height, 99, kg, 11/23/20 4:28:00 EDT, Dry Weight Start Date: 02/18/21 Status: Ordered losartan 50 mg oral tablet 50 mg, 1, tablet, By Mouth, Daily, # 90 tablet, Refills 1, Tot. Refills 1, Maintenance, 06/15/21 9:18:00 EST, Route to Pharmacy Electronically, [facility]/pharmacy #0315, Partial fill upon patient request if the prescription is for a schedule II opioid drug.... Start Date: 06/15/21 Stop Date: 12/12/21 Status: Ordered Multivitamin By Mouth, Daily, 0 Refills, Maintenance, 06/08/15 13:58:35 Start Date: 06/08/15 Status: Ordered sertraline 50 mg oral tablet 1 tablet, By Mouth, Daily, # 90 tablet, 1 Refills, [facility] 07833, 163, cm, 04/21/21 14:48:00 EDT,Height, 98, kg, 04/19/21 14:18:00 EDT, Dry Weight Start Date: 05/24/21 Status: Ordered Problem List Condition Effective Dates Status Health Status Inform ant Hyperlipidemia(Confirmed) Active Hypertension(Confirmed) Active Obese class II(Confirmed) Active Major depression, recurrent(Confirmed) Active Social History Social History Type Response Smoking Status Never smoker entered on: 05/14/15 Sex
--- OUTSIDE RECORDS SUMMARY | 2023-02-02 08:23 | XMS_ITS | Continuity of Care Document ---
Author Name Unknown Organization [facility] Adult Address [address] [place] [address]- Care Team Providers Care Water And Sewer Systems Superintendent Name Role Phone Anastasia Marquez MD Primary Care Physician Encounter [facility] [facility] Date(s): 11/22/20 - 11/29/20 [facility] Adult [address] [place] [address]- Encounter Diagnosis Dysuria(Discharge Diagnosis) - 11/22/20 Attending Physician: Shikha Thomson NP Referring Physician: Anastasia Marquez MD Allergies, Adverse Reactions, [...] Recorded BCG vaccine 66 Recorded 1Result Comment: [facility] [id number] Medications amLODIPine 10 mg oral tablet 10 mg, 1, tablet, By Mouth, Daily, # 90 tablet, Refills 1, Tot. Refills 1, Maintenance, 11/23/20 14:03:00 EDT, Route to Pharmacy Electronically, [facility]/pharmacy #0315, 163, cm, 11/23/20 4:28:00 EDT, Height, [...] Dates Health Status Clini domenic Service Informant Dysuria Discharge Diagnosis 11/22/20 Vital Signs Most recent to oldest [Reference Range]: 1 Height 158 cm (11/22/20 7:28 AM) Weight 93.1 kg (11/22/20 7:28 AM) Pulse Rate [55-90 bpm] 96 bpm *H* (11/22/20 7:28 AM) Body Mass Index [18.5-24.99] 37.29 *>HHI* (11/22/20 7:28 AM) Blood Pressure [90-138/55-84 mm Hg] 160/ 113mm Hg *H* (11/22/20 7:28 AM) Blood pressure sites Arm, left (11/22/20 7:28 AM) Weight Obtained Via Patient/family state d (11/22/20 7:28 AM) Social History Social History Type Response Smoking Status Never smoker entered on: 05/14/15 Sex
--- OUTSIDE RECORDS SUMMARY | 2023-02-02 08:23 | XMS_ITS | Continuity of Care Document ---
Author Name Unknown Organization [facility] Address [address] [place] [address]- Care Team Providers Care Dopeman Name Role Phone Jimmy DELATORRE, Anastasia Primary Care Physician Encounter [facility] [place] Date(s): 12/03/20 - 01/02/21 [facility] [address] [place] [address]- Attending Physician: Admtr, Rasheeda Admitting Physician: Admtr, Ar8 Referring Physician: Admtr, [...] Recorded BCG vaccine 66 Recorded 1Result Comment: [facility] [id number] Medications amLODIPine 10 mg oral tablet 10 mg, 1, tablet, By Mouth, Daily, # 90 tablet, Refills 1, Tot. Refills 1, Maintenance, 11/23/20 14:03:00 EDT, Route to Pharmacy Electronically, [facility]/pharmacy #0315, 163, cm, 11/23/20 4:28:00 EDT, [...] 0 Refills, Maintenance, 11/07/19 10:55:00 EDT,[facility], 158, cm, 10/29/19 14:34:00 EDT, Height Start Date: 11/07/19 Status: Ordered Multivitamin By Mouth, Daily, 0 Refills, Maintenance, 06/08/15 13:58:35 Start Date: 06/08/15 Status: Ordered Zoloft 50 mg oral tablet 1 tablet = 50 mg, By Mouth, Daily, # 90 tablet, 1 Refills, Maintenance, 11/23/20 13:18:00 EDT, Tablet, [facility]/pharmacy #0315, 163, cm, 11/23/20 4:28:00 EDT, Height, 99, kg, 11/23/20 4:28:00 EDT, Dry Weight Start Date: 11/23/20 Status: Ordered Problem List Condition Effective Dates Status Health Status Inform ant Hyperlipidemia(Confirmed) Active Hypertension(Confirmed) Active Major depression, recurrent(Confirmed) Active Social History Social History Type Response Smoking Status Never smoker entered on: 05/14/15 Sex
--- OUTSIDE RECORDS SUMMARY | 2023-02-02 08:23 | XMS_ITS | Continuity of Care Document ---
Author Name Unknown Organization [facility] Address [address] [place] [address]- Care Team Providers Care Advertising Sales Associate Name Role Phone Jimmy DELATORRE, Anastasia Primary Care Physician [place] [facility] [id number] Date(s): 06/06/21 - 06/13/21 [facility] [address] [place] [address]- Attending Physician: Anastasia Marquez MD Allergies, Adverse [...] vaccine 66 Recorded 1Result Comment: [facility] [id number] Medications Advair Diskus 250 mcg-50 mcg inhalation powder 1, puffs, Inhalation, 2 times a day, # 60 each, Refills 0, Route to Pharmacy Electronically, [id number], [facility] ST[facility] 47397, 163, cm, 04/21/21 14:48:00 EDT, Height, 98, kg, 04/19/21 14:18:00 EDT, Dry Weight Start Date: 05/18/21 Status: Ordered Albuterol (Eqv-Proventil HFA) 90 mcg/inh inhalation aerosol 2 puffs, Inhalation, Every 6 hours, PRN NEEDED FOR WHEEZING/SOB, # 6.7 each, 5 Refills, [facility], 163, cm, 04/21/21 14:48:00 EDT, Height, 98, kg, 04/19/21 14:18:00 EDT, Dry Weight Start Date: 05/27/21 Status: Ordered amLODIPine 10 mg oral tablet 1 tablet, By Mouth, Daily, # 90 tablet, 1 Refills, [facility], 163, cm, 04/21/21 14:48:00 EDT,Height, 98, kg, 04/19/21 14:18:00 EDT, Dry Weight Start Date: 05/24/21 Status: Ordered codeine-guaifenesin 10 mg-100 mg/5 mL oral syrup 10 mL, By Mouth, Daily at bedtime, PRN Cough, for 12 days, # 60 mL, 0 Refills, Acute 06/21/21 14:09:00 EST, 06/09/21 14:09:00 EDT, [facility]/pharmacy #0315, Partial fill upon patient request if the prescription is for a schedule II opioid drug., 10 mL By Mo... Start Date: 06/09/21 Stop Date: 06/21/21 Status: Ordered CPAP Machine See Instructions, # 1 each, Refills 12, Tot. Refills 12, Maintenance, CPAP AUTO TITRATION @ 6-18 CMH20 ALL PAP SUPPLIES: TUBING, HEADGEAR, CHIN STRAP, CLIMATE CONTROL LINE, FULL FACE/NASAL MASK, HEATED HUMIDIFIER, WATER CHAMBER AND FILTERS DX BRUCE (... Start Date: 12/14/15 Status: Ordered lisinopril 10 mg oral tablet 10 mg, 1, tablet, By Mouth, Daily, # 90 tablet, Refills 3, Tot. Refills 3, Maintenance, 01/14/21 14:16:00 EDT, Route to Pharmacy Electronically, [facility]/pharmacy #0315, Partial fill upon patient request if the prescription is for a schedule II opioid drug... Start Date: 01/14/21 Status: Ordered loratadine 10 mg oral tablet 1, tablet, By Mouth, Daily, # 90 tablet, Refills 1, Tot. Refills 0, Maintenance, 02/18/21 15:11:00 EDT, Route to Pharmacy Electronically, [facility], 163, cm, 01/14/21 13:24:00 EDT, Height, 99, kg, 11/23/20 4:28:00 EDT, Dry Weight Start Date: 02/18/21 Status: Ordered Multivitamin By Mouth, Daily, 0 Refills, Maintenance, 06/08/15 13:58:35 Start Date: 06/08/15 Status: Ordered sertraline 50 mg oral tablet 1 tablet, By Mouth, Daily, # 90 tablet, 1 Refills, [facility], 163, cm, 04/21/21 14:48:00 EDT,Height, 98, kg, 04/19/21 14:18:00 EDT, Dry Weight Start Date: 05/24/21 Status: Ordered Problem List Condition Effective Dates Status Health Status Inform ant Hyperlipidemia(Confirmed) Active Hypertension(Confirmed) Active Major depression, recurrent(Confirmed) Active Vital Signs Most recent to oldest [Reference Range]: 1 Height 163 cm (06/06/21 2:19 PM) Social History Social History Type Response Smoking Status Never smoker entered on: 05/14/15 Sex
--- OUTSIDE RECORDS SUMMARY | 2023-02-02 08:24 | XMS_ITS | Continuity of Care Document ---
Author Name Unknown Organization [facility] Address [address] [place] [address]- Care Team Providers Care Manager Garden Name Role Phone Jimmy DELATORRE, Anastasia Primary Care Physician [phone] [place] [facility] [place] 07/06/21 [facility] [address] [place] [address]- Allergies, Adverse Reactions, Alerts Substance Reaction Severity [...] Recorded BCG vaccine 66 Recorded 1Result Comment: [facility] 2[facility] [id number] 2Result Comment: [facility] [id number] Medications Albuterol (Eqv-Proventil HFA) 90 mcg/inh inhalation aerosol 2 puffs, Inhalation, Every 6 hours, PRN NEEDED FOR WHEEZING/SOB, # 6.7 each, 5 Refills, [facility] 48283, 163, cm, 04/21/21 14:48:00 EDT, Height, 98, kg, 04/19/21 14:18:00 EDT, Dry Weight Start Date: 05/27/21 Status: Ordered amLODIPine 10 mg oral tablet 1 tablet, By Mouth, Daily, # 90 tablet, 1 Refills, [facility] 38912, 163, cm, 04/21/21 14:48:00 EDT,Height, 98, kg, [...] 02/18/21 15:11:00 EDT, Route to Pharmacy Electronically, [facility] 12694, 163, cm, 01/14/21 13:24:00 EDT, Height, 99, kg, 11/23/20 4:28:00 EDT, Dry Weight Start Date: 02/18/21 Status: Ordered losartan 50 mg oral tablet 50 mg, 1, tablet, By Mouth, Daily, # 90 tablet, Refills 1, Tot. Refills 1, Maintenance, 06/15/21 9:18:00 EST, Route to Pharmacy Electronically, [facility]/pharmacy #5875, Partial fill upon patient request if the prescription is for a schedule II opioid drug.... Start Date: 06/15/21 Stop Date: 12/12/21 Status: Ordered Multivitamin By Mouth, Daily, 0 Refills, Maintenance, 06/08/15 13:58:35 Start Date: 06/08/15 Status: Ordered sertraline 50 mg oral tablet 1 tablet, By Mouth, Daily, # 90 tablet, 1 Refills, [facility] 13089, 163, cm, 04/21/21 14:48:00 EDT,Height, 98, kg, 04/19/21 14:18:00 EDT, Dry Weight Start Date: 05/24/21 Status: Ordered Problem List Condition Effective Dates Status Health Status Inform ant Hyperlipidemia(Confirmed) Active Hypertension(Confirmed) Active Obese class II(Confirmed) Active Major depression, recurrent(Confirmed) Active Social History Social History Type Response Smoking Status Never smoker entered on: 05/14/15 Sex
--- OUTSIDE RECORDS SUMMARY | 2023-02-02 08:24 | XMS_ITS | Continuity of Care Document ---
Author Name Unknown Organization [facility] Address [address] [place] [address]- Care Team Providers Care Reconciliation Accountant Name Role Phone Anastasia Marquez MD Primary Care Physician [phone] Encounter [facility] [place] Date(s): 11/22/20 - 12/22/20 [facility] [address] [place] [address]- Allergies, Adverse Reactions, Alerts Substance Reaction Severity [...] Recorded BCG vaccine 66 Recorded 1Result Comment: [facility] [id number] Medications amLODIPine 10 mg oral tablet 10 mg, 1, tablet, By Mouth, Daily, # 90 tablet, Refills 1, Tot. Refills 1, Maintenance, 11/23/20 14:03:00 EDT, Route to Pharmacy Electronically, [facility]/pharmacy #0315, 163, cm, 11/23/20 4:28:00 EDT, [...] 1 Refills, Maintenance, 11/23/20 13:18:00 EDT, Tablet, [facility]/pharmacy #0315, 163, cm, 11/23/20 4:28:00 EDT, Height, 99, kg, 11/23/20 4:28:00 EDT, Dry Weight Start Date: 11/23/20 Status: Ordered Problem List Condition Effective Dates Status Health Status Inform ant Hyperlipidemia(Confirmed) Active Hypertension(Confirmed) Active Major depression, recurrent(Confirmed) Active Social History Social History Type Response Smoking Status Never smoker entered on: 05/14/15 Sex
--- OUTSIDE RECORDS SUMMARY | 2023-02-02 08:24 | XMS_ITS | Continuity of Care Document ---
Author Name Unknown Organization [facility] Address [address] [place] [address]- Care Team Providers Care Log Washer Name Role Phone Jimmy DELATORRE, Anastasia Primary Care Physician Encounter [facility] Date(s): 04/19/21 - 04/19/[address] [address]- Discharge Disposition: A-D/C Home Attending Physician: Shayan Jewell MD Admitting Physician: Shayan Jewell MD Referring Physician: Not on Staff, Referring [...] BCG vaccine 66 Recorded 1Result Comment: [facility] [id number] Medications albuterol CFC free 90 mcg/inh inhalation aerosol 2, puffs, Inhalation, Every 6 hours, PRN, # 1 each, Refills 0, Tot. Refills 0, Maintenance, 04/07/21 15:35:00 EDT, Route to Pharmacy Electronically, [id number], [facility], 163, cm, 04/07/21 12:12:00 EDT, Height, 99,... Start Date: 04/07/21 Status: Ordered amLODIPine 10 mg oral tablet 10 mg, 1, tablet, By Mouth, Daily, # 90 tablet, Refills 1, Tot. Refills 1, Maintenance, 11/23/20 14:03:00 EDT, Route to Pharmacy Electronically, [facility]/pharmacy #0315, 163, cm, 11/23/20 4:28:00 EDT, Height, [...] BRUCE (... Start Date: 12/14/15 Status: Ordered doxycycline monohydrate 100 mg oral capsule 1 capsule = 100 mg, By Mouth, 2 times a day, for 7 days, # 14 capsule, 0 Refills, Acute 04/26/21 14:23:00 EDT, 04/19/21 14:23:00 EDT, Capsule, [facility]/pharmacy #0315, Partial fill upon patient request ifthe prescription is for a schedule II opioid drug.,... Start Date: 04/19/21 Stop Date: 04/26/21 Status: Ordered Fish Oil 1000 mg oral [...] 01/14/21 14:16:00 EDT, Route to Pharmacy Electronically, [facility]/pharmacy #0315, Partial fill upon patient request if the prescription is for a schedule II opioid drug... Start Date: 01/14/21 Status: Ordered loratadine 10 mg oral tablet 1, tablet, By Mouth, Daily, # 90 tablet, Refills 1, Tot. Refills 0, Maintenance, 02/18/21 15:11:00 EDT, Route to Pharmacy Electronically, [facility]ORE 09740, 163, cm, 01/14/21 13:24:00 EDT, Height, 99, [...] 0 Refills, Maintenance, 04/19/21 14:23:00 EDT, Tablet, [facility]/pharmacy #0315, Partial fill upon patient request if the prescription... Start Date: 04/19/21 Status: Ordered Zoloft 50 mg oral tablet 1 tablet = 50 mg, By Mouth, Daily, # 90 tablet, 1 Refills, Maintenance, 11/23/20 13:18:00 EDT, Tablet, [facility]/pharmacy #0315, 163, cm, 11/23/20 4:28:00 EDT, Height, 99, kg, 11/23/20 4:28:00 EDT, Dry Weight Start Date: 11/23/20 Status: Ordered Problem List Condition Effective Dates Status Health Status Inform ant Hyperlipidemia(Confirmed) Active Hypertension(Confirmed) Active Major depression, recurrent(Confirmed) Active Results Radiology Reports * Exam Date Time Procedure Performing Provider Status 04/19/21 1:59 PM Chest 2 Views Frontal and Lat Rohit Chowdary; Garth (Verified) Notes: (Chest 2 Views Frontal and Lat) Reason For Exam: Cough RESULT: Chest 2 Views Frontal and Lat Chest 2 Views Frontal and Lat Reason: Cough; Clinical Question(s): Pneumonia COMPARISON: None. FINDINGS: LINES AND TUBES: None. LUNGS AND PLEURA: Clear lungs. Normal pulmonary vascularity. No pleural effusion. No pneumothorax. HEART, MEDIASTINUM AND MICHELL: Heart is normal in size. Normal upper mediastinal and hilar contour. BONES AND SOFT TISSUES: No acute abnormality. IMPRESSION: No acute abnormality. WSN: [id number] Ordering Physician: Robert Hicks Dictated By: Kaveh Pettit MD Dictated Date/Time: 04/19/21 2:02 pm Reviewed By: Kaveh Pettit MD Signed By: Kaveh Pettit MD Signed Date/Time: 04/19/21 2:02 pm Transcribed By: LUISA Transcribed Date/Time: 04/19/21 2:00 pm Vital Signs Most recent to oldest [Reference Range]: 1 2 Height 163 cm (04/19/21 2:18 PM) 163 cm (04/19/21 1:02 PM) Weight 98 kg (04/19/21 2:18 PM) 98 kg (04/19/21 1:02 PM) Oxygen Saturation [94-100 %] 98 % (04/19/21 2:20 PM) 98 % (04/19/21 1:02 PM) Pulse Rate [55-90 bpm] 92 bpm *H* (04/19/21 2:20 PM) 99 bpm *H* (04/19/21 1:02 PM) Body Mass Index [18.5-24.99] 36.89 *>HHI* (04/19/21 1:02 PM) Blood Pressure [90-138/55-84 mm Hg] 164/ 72mm Hg *H* (04/19/21 2:20 PM) Respiratory Rate [16-30 br/min] 18 br/mi n (04/19/21 2:20 PM) 20 br/min (04/19/21 1:02 PM) Temperature [96.8-100.4 DegF] 97.4 DegF (04/19/21 1:02 PM) Mode of Delivery (Oxygen) Room air (04/19/21 2:20 PM) Room air (04/19/21 1:02 PM) Temperature Route Temporal (04/19/21 1:02 PM) Dry Weight 98 kg (04/19/21 2:18 PM) 98 kg (04/19/21 1:02 PM) Weight Obtained Via Patient/family state d (04/19/21 2:18 PM) Dry Weight Obtained Via Patient/family s tated (04/19/21 2:18 PM) Social History Social History Type Response Smoking Status Never smoker entered on: 05/14/15 Sex
--- OUTSIDE RECORDS SUMMARY | 2023-02-02 08:24 | XMS_ITS | Continuity of Care Document ---
Author Name Unknown Organization [facility] Adult Address [address] [place] [address]- Care Team Providers Care Infection Control Manager Name Role Phone Jimmy DELATORRE, Anastasia Primary Care Physician [phone] [place] [facility] [place] 06/14/21 - 07/14/21 [facility] [address] [place] [address]- Allergies, Adverse Reactions, Alerts Substance Reaction Severity [...] Recorded BCG vaccine 66 Recorded 1Result Comment: [facility] [id number] 2Result Comment: [facility] [id number] Medications Albuterol (Eqv-Proventil HFA) 90 mcg/inh inhalation aerosol 2 puffs, Inhalation, Every 6 hours, PRN NEEDED FOR WHEEZING/SOB, # 6.7 each, 5 Refills, [facility] 46613, 163, cm, 04/21/21 14:48:00 EDT, Height, 98, kg, 04/19/21 14:18:00 EDT, Dry Weight Start Date: 05/27/21 Status: Ordered amLODIPine 10 mg oral tablet 1 tablet, By Mouth, Daily, # 90 tablet, 1 Refills, [facility] 38293, 163, cm, 04/21/21 14:48:00 EDT,Height, 98, kg, [...] 02/18/21 15:11:00 EDT, Route to Pharmacy Electronically, [facility] 99359, 163, cm, 01/14/21 13:24:00 EDT, Height, 99, kg, 11/23/20 4:28:00 EDT, Dry Weight Start Date: 02/18/21 Status: Ordered losartan 50 mg oral tablet 50 mg, 1, tablet, By Mouth, Daily, # 90 tablet, Refills 1, Tot. Refills 1, Maintenance, 06/15/21 9:18:00 EST, Route to Pharmacy Electronically, [facility]/pharmacy #0315, Partial fill upon patient request if the prescription is for a schedule II opioid drug.... Start Date: 06/15/21 Stop Date: 12/12/21 Status: Ordered Multivitamin By Mouth, Daily, 0 Refills, Maintenance, 06/08/15 13:58:35 Start Date: 06/08/15 Status: Ordered sertraline 50 mg oral tablet 1 tablet, By Mouth, Daily, # 90 tablet, 1 Refills, [facility] 98943, 163, cm, 04/21/21 14:48:00 EDT,Height, 98, kg, 04/19/21 14:18:00 EDT, Dry Weight Start Date: 05/24/21 Status: Ordered Problem List Condition Effective Dates Status Health Status Inform ant Hyperlipidemia(Confirmed) Active Hypertension(Confirmed) Active Obese class II(Confirmed) Active Major depression, recurrent(Confirmed) Active Social History Social History Type Response Smoking Status Never smoker entered on: 05/14/15 Sex
--- OUTSIDE RECORDS SUMMARY | 2023-02-02 08:24 | XMS_ITS | Continuity of Care Document ---
Author Name Unknown Organization [facility] Adult Address [address] [place] [address]- Care Team Providers Care Smoking Pipe Driller And Threader Name Role Phone Anastasia Marquez MD Primary Care Physician Encounter [facility] Date(s): 06/22/20 - 07/22/20 [facility] [address] [place] [address]- Allergies, Adverse Reactions, Alerts Substance Reaction Severity Status diclofenac Active Seafood Active Immunizations Given and Recorded Vaccine Date Status Refusal Reason influenza virus vaccine, inactivated 1 06/22/20 Gi deborah influenza virus vaccine, inactivated 05/28/15 Give n Influenza Virus Vaccine (oldterm) 06/20/19 Recorde d tetanus-diphtheria toxoids (Td) 05/28/15 Given Varicella Virus Vaccine 02/03/15 Recorded Measles/Mumps/Rubella Virus Vaccine 02/03/15 Recor ded Poliovirus Vaccine, Inactivated 66 Recorded Poliovirus Vaccine, Inactivated 66 Recorded BCG vaccine 66 Recorded 1Result Comment: [facility] [place] [id number] Medications amLODIPine 10 mg oral tablet 10 mg, 1, tablet, By Mouth, Daily, # 90 tablet, Refills 1, Tot. Refills 1, Maintenance, 06/22/20 12:13:00 EST, Route to Pharmacy Electronically, [facility]/pharmacy #7139, 158, cm, 06/22/20 11:38:00 EST, Height Start Date: 06/22/20 Status: Ordered atorvastatin 10 mg oral tablet 1 tablet = 10 mg, By Mouth, Daily, # 90 tablet, 1 Refills, Maintenance, 04/28/20 9:59:00 EDT, [facility], 158, cm, 03/25/20 14:34:00 EDT, Height Start Date: 04/28/20 Status: Ordered Claritin 10 mg oral tablet 10 mg, 1, tablet, By Mouth, Daily, # 90 tablet, Refills 1, Tot. Refills 1, Maintenance, 06/22/20 12:14:00 EST, Route to Pharmacy Electronically, [facility]/pharmacy #0315, 158, cm, 06/22/20 11:38:00 EST, Height Start Date: 06/22/20 Status: Ordered CPAP Machine See Instructions, # [...] Daily, # 90 tablet, 1 Refills, Maintenance, 06/22/20 12:13:00 EST, Tablet, [facility], 158, cm, 06/22/20 11:38:00 EST, Height Start Date: 06/22/20 Status: Ordered Problem List Condition Effective Dates Status Health Status Inform ant Hyperlipidemia(Confirmed) Active Hypertension(Confirmed) Active Major depression, recurrent(Confirmed) Active Social History Social History Type Response Smoking Status Never smoker entered on: 05/14/15 Sex
--- OUTSIDE RECORDS SUMMARY | 2023-02-02 08:24 | XMS_ITS | Continuity of Care Document ---
Author Name Unknown Organization [facility] Adult Address [address] [place] [address]- Care Team Providers Care Program Trainer Name Role Phone Jimmy DELATORRE, Anastasia Primary Care Physician Encounter [facility] Date(s): 03/14/22 - 04/13/22 [facility] Adult [address] [place] [address]- Attending Physician: Rasheeda Castro Admitting Physician: Rasheeda Castro Referring Physician: AdmtrRashedea Allergies, Adverse Reactions, Alerts Substance Reaction Severity [...] Recorded BCG vaccine 66 Recorded 1Result Comment: [facility] [id number] 2Result Comment: [facility] [id number] Medications Albuterol (Eqv-Proventil HFA) 90 mcg/inh inhalation aerosol 2 puffs, Inhalation, Every 6 hours, PRN NEEDED FOR WHEEZING/SOB, # 6.7 each, 5 Refills, [facility], 163, cm, 04/21/21 14:48:00 EDT, Height, 98, kg, 04/19/21 14:18:00 EDT, Dry Weight Start Date: 05/27/21 Status: Ordered amLODIPine 10 mg oral tablet 1 tablet, By Mouth, Daily, # 90 tablet, 1 Refills, [facility], 163, cm, 07/01/21 16:10:00 EST,Height, 98, kg, 04/19/21 14:18:00 EDT, Dry Weight Start Date: 11/15/21 Status: Ordered CPAP Machine See Instructions, # [...] 6 Refills, Maintenance, 07/01/21 16:54:00 EST, Aerosol, [facility]/pharmacy #0315, Partial fill upon patient request if the prescription is for a schedule II opioid drug., 163, cm, 07/01/21 16:10:00 EST, Height, 9... Start Date: 07/01/21 Status: Ordered loratadine 10 mg oral tablet See Instructions, TAKE 1 TABLET BY MOUTH EVERY DAY, # 90 tablet, Refills 1, Instructions Replace Required Details, Route to Pharmacy Electronically, [facility], 163, cm, 07/01/21 16:10:00 EST, Height, 98, kg, 04/19/21 14:18:00 EDT, Dry Weight Start Date: 02/10/22 Status: Ordered losartan 50 mg oral tablet 1 tablet, By Mouth, Daily, # 90 tablet, 1 Refills, [facility], 163, cm, 07/01/21 16:10:00 EST,Height, 98, kg, 04/19/21 14:18:00 EDT, Dry Weight Start Date: 12/01/21 Status: Ordered Multivitamin By Mouth, Daily, 0 Refills, Maintenance, 06/08/15 13:58:35 Start Date: 06/08/15 Status: Ordered sertraline 50 mg oral tablet 1 tablet, By Mouth, Daily, # 90 tablet, 1 Refills, [facility], 163, cm, 07/01/21 16:10:00 EST,Height, 98, kg, 04/19/21 14:18:00 EDT, Dry Weight Start Date: 11/15/21 Status: Ordered Problem List Condition Effective Dates Status Health Status Inform ant Hyperlipidemia(Confirmed) Active Hypertension(Confirmed) Active Obese class II(Confirmed) Active Major depression, recurrent(Confirmed) Active Social History Social History Type Response Smoking Status Never smoker entered on: 05/14/15 Sex Care Team Personnel Name: Anastasia Marquez MD Address: [address] [place] [address] [address]rd [address] [place], [place] [address]
--- OUTSIDE RECORDS SUMMARY | 2023-02-02 08:24 | XMS_ITS | Continuity of Care Document ---
Author Name Unknown Organization [facility] Adult Address [address] [place] [address]- Care Team Providers Care Host Hostess Name Role Phone Jimmy DELATORRE, Anastasia [id number] Date[facility] 12/14/21 - 04/13/22 [facility] Adult [address] [place] [address]- Attending Physician: Anastasia Marquez MD Allergies, Adverse [...] Recorded BCG vaccine 66 Recorded 1Result Comment: [facility] [id number] 2Result Comment: [facility] [id number] Medications Albuterol (Eqv-Proventil HFA) 90 mcg/inh inhalation aerosol 2 puffs, Inhalation, Every 6 hours, PRN NEEDED FOR WHEEZING/SOB, # 6.7 each, 5 Refills, [facility] STORE 22816, 163, cm, 04/21/21 14:48:00 EDT, Height, 98, kg, 04/19/21 14:18:00 EDT, Dry Weight Start Date: 05/27/21 Status: Ordered amLODIPine 10 mg oral tablet 1 tablet, By Mouth, Daily, # 90 tablet, 1 Refills, [facility] 0[facility]76, 163, cm, 07/01/21 16:10:00 EST,Height, 98, kg, [...] 6 Refills, Maintenance, 07/01/21 16:54:00 EST, Aerosol, [facility]/pharmacy #0315, Partial fill upon patient request if the prescription is for a schedule II opioid drug., 163, cm, 07/01/21 16:10:00 EST, Height, 9... Start Date: 07/01/21 Status: Ordered loratadine 10 mg oral tablet See Instructions, TAKE 1 TABLET BY MOUTH EVERY DAY, # 90 tablet, Refills 1, Instructions Replace Required Details, Route to Pharmacy Electronically, [facility] 501[facility], 163, cm, 07/01/21 16:10:00 EST, Height, 98, kg, 04/19/21 14:18:00 EDT, Dry Weight Start Date: 02/10/22 Status: Ordered losartan 50 mg oral tablet 1 tablet, By Mouth, Daily, # 90 tablet, 1 Refills, [facility] 66427, 163, cm, 07/01/21 16:10:00 EST,Height, 98, kg, 04/19/21 14:18:00 EDT, Dry Weight Start Date: 12/01/21 Status: Ordered Multivitamin By Mouth, Daily, 0 Refills, Maintenance, 06/08/15 13:58:35 Start Date: 06/08/15 Status: Ordered sertraline 50 mg oral tablet 1 tablet, By Mouth, Daily, # 90 tablet, 1 Refills, [facility], 163, cm, 07/01/21 16:10:00 EST,Height, 98, kg, 04/19/21 14:18:00 EDT, Dry Weight Start Date: 11/15/21 Status: Ordered Problem List Condition Effective Dates Status Health Status Inform ant Hyperlipidemia(Confirmed) Active Hypertension(Confirmed) Active Obese class II(Confirmed) Active Major depression, recurrent(Confirmed) Active Social History Social History Type Response Smoking Status Never smoker entered on: 05/14/15 Sex Care Team Personnel Name: Jimmy DELATORRE, Anastasia Address: [address] [place] [address] [address] [place], [place] [address]
--- OUTSIDE RECORDS SUMMARY | 2023-02-02 08:24 | XMS_ITS | Continuity of Care Document ---
Author Name Unknown Organization [facility] Adult Address [address] [place] [address]- Care Team Providers Care Fly Worker Name Role Phone Jimmy DELATORRE, Anastasia Primary Care Physician Encounter [facility] Date(s): 04/30/20 - 05/30/[address] [address]- [facility] Attending Physician: Rasheeda Castro Admitting Physician: AdmtrRasheeda Referring Physician: Admtr, Ar8 Allergies, Adverse Reactions, Alerts Substance Reaction Severity Status diclofenac Active Seafood Active Immunizations Given and Recorded Vaccine Date Status Refusal Reason Influenza Virus Vaccine (oldterm) 06/20/19 Recorde d tetanus-diphtheria toxoids (Td) 05/28/15 Given influenza virus vaccine, inactivated 05/28/15 Give n Measles/Mumps/Rubella Virus Vaccine 02/03/15 Recor ded Varicella Virus Vaccine 02/03/15 Recorded Poliovirus Vaccine, Inactivated 66 Recorded Poliovirus Vaccine, Inactivated 66 Recorded BCG vaccine 66 Recorded Medications amLODIPine 10 mg oral tablet 10 mg, 1, tablet, By Mouth, Daily, # 90 tablet, Refills 3, Tot. Refills 3, Maintenance, 10/29/19 14:44:00 EDT, Route to Pharmacy Electronically, [facility], 158, cm, 10/29/19 14:34:00 EDT, Height Start Date: 10/29/19 Status: Ordered atorvastatin 10 mg oral tablet 1 tablet = 10 mg, By Mouth, Daily, # 90 tablet, 1 Refills, Maintenance, 04/28/20 9:59:00 EDT, [facility], 158, cm, 10/29/19 14:34:00 EDT, Height Start Date: 04/28/20 Status: Ordered Claritin 10 mg oral tablet 10 mg, 1, tablet, By Mouth, Daily, # 90 tablet, Refills 3, Tot. Refills 3, Maintenance, 11/01/19 7:21:00 EDT, Route to Pharmacy Electronically, [facility], 158, cm, 10/29/19 14:34:00EDT, Height Start Date: 11/01/19 Status: Ordered CPAP Machine See Instructions, # [...] 90 capsule, 0 Refills, Maintenance, 11/07/19 10:55:00 EDT,[facility], 158, cm, 10/29/19 14:34:00 EDT, Height Start Date: 11/07/19 Status: Ordered Multivitamin By Mouth, Daily, 0 Refills, Maintenance, 06/08/15 13:58:35 Start Date: 06/08/15 Status: Ordered omeprazole 20 mg oral delayed release tablet 1 tablet = 20 mg, By Mouth, Daily, # 120 tablet, 0 Refills, Maintenance, 12/14/15 15:59:59, EC Tablet Start Date: 12/14/15 Status: Ordered Percocet-5/325 325 mg-5 mg oral tablet 1, tablet, By Mouth, Every 4 hours, PRN, # 5 tablet, Refills 0, Tot. Refills 0, Maintenance, for pain, 10/03/16 17:08:11, Print Requisition, Tablet Start Date: 10/03/16 Status: Ordered phenazopyridine 100 mg oral tablet 100 mg, 1, tablet, By Mouth, 3 times a day, # 9 tablet, Refills 0, Tot. Refills 0, Maintenance, 10/03/16 17:08:00, Print Requisition Start Date: 10/03/16 Stop Date: 10/06/16 Status: Ordered Zoloft 50 mg oral tablet 1 tablet = 50 mg, By Mouth, Daily, # 90 tablet, 3 Refills, Maintenance, 11/05/19 14:58:00 EDT, Tablet, [facility], 158, cm, 10/29/19 14:34:00 EDT, Height Start Date: 11/05/19 Status: Ordered Problem List Condition Effective Dates Status Health Status Inform ant Hyperlipidemia(Confirmed) Active Hypertension(Confirmed) Active Major depression, recurrent(Confirmed) Active Social History Social History Type Response Smoking Status Never smoker entered on: 05/14/15 Sex
--- OUTSIDE RECORDS SUMMARY | 2023-02-02 08:24 | XMS_ITS | Continuity of Care Document ---
Author Name Unknown Organization [facility] Adult Address [address] [place] [address]- Care Team Providers Care Electronics Recycler Name Role Phone Jimmy DELATORRE, Anastasia Primary Care Physician [phone] Encounter [facility] Date(s): 07/27/22 - 08/03/22 [facility] Adult [address] [place] [address]- Encounter Diagnosis Well adult exam(Discharge Diagnosis) - 07/27/22 Hyperlipidemia(Discharge Diagnosis) - 07/27/22 Hypertension(Discharge Diagnosis) - 07/27/22 Major depression, recurrent(Discharge Diagnosis) - 07/27/22 Severe obesity (BMI 35.0-39.9) with comorbidity(Discharge Diagnosis) - 07/27/22 Attending Physician: Anastasia Marquez MD Allergies, Adverse [...] influenza virus vaccine, inactivated 05/28/15 Give n [id number] 12y+ bivalent booster vax 05/12/22 Recorded SARS-CoV-2 mRNA ([id number]) vax 03/02/22 Recorded SARS-CoV-2 (COVID-19) mRNA BNT-162b2 vac 05/28/21 Recorded SARS-CoV-2 (COVID-19) mRNA BNT-162b2 vac 11/13/20 Given SARS-CoV-2 (COVID-19) mRNA BNT-162b2 vac 10/23/20 Given Influenza Virus Vaccine (oldterm) 06/20/19 Recorde d tetanus-diphtheria toxoids (Td) 05/28/15 Given Varicella Virus Vaccine 02/03/15 Recorded Measles/Mumps/Rubella Virus Vaccine 02/03/15 Recor ded Poliovirus Vaccine, Inactivated 66 Recorded Poliovirus Vaccine, Inactivated 66 Recorded BCG vaccine 66 Recorded 1Result Comment: [facility]: [id number] 2Result Comment: [facility] [id number] 3Result Comment: [facility] [id number] Medications amLODIPine 10 mg oral tablet 1 tablet, By Mouth, Daily, # 90 tablet, 1 Refills, Maintenance, 07/27/22 15:47:00 EST, [facility]/pharmacy#0315, 163, cm, 07/27/22 15:06:00 EST, Height, 98, kg, 04/19/21 14:18:00 EDT, Dry Weight Start Date: 07/27/22 Status: Ordered atenolol 50 mg oral tablet 50 mg, 1, tablet, By Mouth, Daily, # 90 tablet, Refills 1, Tot. Refills 1, Maintenance, 06/19/22 16:39:00 EST, Route to Pharmacy Electronically, [facility]/pharmacy #0315, Partial fill upon patient request if [...] BRUCE (... Start Date: 12/14/15 Status: Ordered losartan 100 mg oral tablet 1 tablet = 100 mg, By Mouth, Daily, # 90 tablet, 1 Refills, Maintenance, 06/19/22 16:38:00 EST, Tablet, [facility]/pharmacy #0315, Partial fill upon patient request if the prescription is for a schedule II opioid drug., 163, cm, 06/19/22 16:32:00 EST, Height... Start Date: 06/19/22 Status: Ordered Multivitamin By Mouth, Daily, 0 Refills, Maintenance, 06/08/15 13:58:35 Start Date: 06/08/15 Status: Ordered sertraline 50 mg oral tablet 1 tablet, By Mouth, Daily, # 90 tablet, 1 Refills, Maintenance, 08/02/22 6:32:00 EST, [facility], 163, cm, 07/27/22 15:06:00 EST, Height, 98, kg, 04/19/21 14:18:00 EDT, Dry Weight Start Date: 08/02/22 Status: Ordered Problem List Condition Confirmation Course Effective Dates Status H ealth Status Informant Hyperlipidemia Confirmed Active Hypertension Confirmed Active Major depression, recurrent Confirmed Active Severe obesity (BMI 35.0-39.9) with comorbidity Confirmed Active Diagnosis Diagnosis Type Effective Dates Health Status Clinical Service Informant Well adult exam Discharge Diagnosis 07/27/22 Hyperlipidemia Discharge Diagnosis 07/27/22 Hypertension Discharge Diagnosis 07/27/22 Major depression, recurrent Discharge Diagnosis 07/27/22 Severe obesity (BMI 35.0-39.9) with comorbidity Discharge Diagnosis 07/27/22 Vital Signs Most recent to oldest [Reference Range]: 1 Height 163 cm (07/27/22 3:06 PM) Weight 104.7 kg (07/27/22 3:06 PM) Oxygen Saturation [94-100 %] 99 % (07/27/22 3:06 PM) Pulse Rate [55-90 bpm] 67 bpm (07/27/22 3:06 PM) Body Mass Index [18.5-24.99 kg/m2] 39.41 kg/m2 *>HHI* (07/27/22 3:06 PM) Blood Pressure [90-138/55-84 mm Hg] 136/ 82mm Hg (07/27/22 3:06 PM) Temperature [96.8-100.4 DegF] 98.1 DegF (07/27/22 3:06 PM) Mode of Delivery (Oxygen) Room air (07/27/22 3:06 PM) Blood pressure sites Arm, left (07/27/22 3:06 PM) Temperature Route Oral (07/27/22 3:06 PM) Weight Obtained Via Standing scale (07/27/22 3:06 PM) Social History Social History Type Response Smoking Status Never smoker entered on: 05/14/15 Sex Note * Rossana Durant: PERFORM, SIGN, VERIFY Event Display: Patient Education/Instruction Authored Date: [id number] [facility] *[facility] [place] [facility] Clinical Summary Name SULLY HIDALGO Age 56 Years 1965 PCP Anastasia Marquez MD PCP Visit Date 07/27/2022 15:03:00 Additional Instructions: Scheduled Appointments?? Future Appointments ?No Future Appointments Scheduled Follow-Up Instructions ?? Diagnosis Essential (primary) hypertension; Major depressive disorder, recurrent, unspecified; Morbid (severe) obesity due to excess calories; Hyperlipidemia, unspecified; Encounter for general adult medical examination without abnormal findings Medications: Please continue your medications until treatment is completed or stopped by your provider. Discuss any questions related to medications with your provider. Medications to Continue with No Changes [id number], [address] [place] [id number], [phone] Amlodipine (amLODIPine 10 mg oral tablet) 1 tab(s) Oral Daily. Refills: 1. Next Dose: These medications were not printed or sent to your pharmacy Atenolol (atenolol 50 mg oral tablet) 1 tab(s) Oral Daily. Refills: 1. Next Dose: Durable Medical Equipment (CPAP Machine) CPAP AUTO TITRATION @ 6-18 CM H20 ALL PAP SUPPLIES: TUBING, HEADGEAR, CHIN STRAP, CLIMATE CONTROL LINE, FULL FACE/NASAL MASK, HEATED HUMIDIFIER, WATER CHAMBER AND FILTERS DX BRUCE ([facility] BHIRS. Refills: 12. Next Dose: Losartan (losartan 100 mg oral tablet) 1 tab(s) Oral Daily. Refills: 1. Next Dose: Multivitamin Oral Daily. Next Dose: Sertraline (sertraline 50 mg oral tablet) 1 tab(s) Oral Daily. Refills: 0. Next Dose: No Longer Take the Following Medications Albuterol (Albuterol (Eqv-Proventil HFA) 90 mcg/inh inhalation aerosol) 2 puff(s) Inhalation every 6 hours as needed NEEDED FOR WHEEZING/SOB. Refills: 5. Fluticasone (Flovent HFA 44 mcg/inh inhalation aerosol) 2 puff(s) Inhalation twice a day. Refills: 6. Loratadine (loratadine 10 mg oral tablet) TAKE 1 TABLET BY MOUTH EVERY DAY. Refills: 1. Allergy Info:?? Seafood; diclofenac Medications Given This Visit Future Orders ?No future orders Vital Signs Height 163 cm Weight 104.7 kg BMI 39.41 kg/m2 Blood Pressure 136 mm Hg/82 mm Hg Temperature 98.1 DegF Pulse Rate 67 bpm Respiratory Rate 02 Sat Mode of Delivery 99 %/Room air You can now view a summary of your hospital visit from the comfort of your home through a free online portal called [employer]. [employer] is a website that allows you to securely view your medical information including discharge summary, medications and follow-up visits. ??You can alsosend a secure electronic message to your doctor???s office to request appointments, renew medications or just ask a question. You can enroll at [email or web address] or register during your next office visit. [...] primary care provider, you may find a [facility] provider by calling [facility] [employer] at [phone]. For information about the plan of care [...] Team Personnel Name: Anastasia Marquez MD Position: [facility] Primary Care Physician Member Role: PCP Address: Address: [address] [place] [address] [address] [place] [address]- Care Team Related Persons Name: BRANDON ZELAYA Address: home [address] [place] [address]
--- OUTSIDE RECORDS SUMMARY | 2023-02-02 08:24 | XMS_ITS | Continuity of Care Document ---
Author Name Unknown Organization [facility] Address [address] [place] [address]- Care Team Providers Care Lead Solutions Architect Name Role Phone Anastasia Marquez MD Primary Care Physician Encounter [facility] Date(s): 11/22/20 - 12/22/20 [facility] [address] [place] [address]- Allergies, Adverse Reactions, Alerts Substance Reaction Severity [...] Recorded BCG vaccine 66 Recorded 1Result Comment: [facility] [id number] Medications amLODIPine 10 mg oral tablet 10 mg, 1, tablet, By Mouth, Daily, # 90 tablet, Refills 1, Tot. Refills 1, Maintenance, 11/23/20 14:03:00 EDT, Route to Pharmacy Electronically, [facility]/pharmacy #0315, 163, cm, 11/23/20 4:28:00 EDT, Height, [...] 1 Refills, Maintenance, 11/23/20 13:18:00 EDT, Tablet, [facility]/pharmacy #0315, 163, cm, 11/23/20 4:28:00 EDT, Height, 99, kg, 11/23/20 4:28:00 EDT, Dry Weight Start Date: 11/23/20 Status: Ordered Problem List Condition Effective Dates Status Health Status Inform ant Hyperlipidemia(Confirmed) Active Hypertension(Confirmed) Active Major depression, recurrent(Confirmed) Active Social History Social History Type Response Smoking Status Never smoker entered on: 05/14/15 Sex
--- OUTSIDE RECORDS SUMMARY | 2023-02-02 08:24 | XMS_ITS | Continuity of Care Document ---
Author Name Unknown Organization [facility] Address [address] [place] [address]- Care Team Providers Care Supervisor Special Education Name Role Phone Jimmy DELATORRE, Anastasia Primary Care Physician [phone] Encounter [facility] Date(s): 07/01/21 - 07/31/21 [facility] [address] [place] [address]- Attending Physician: Admtr, Ar8 Admitting Physician: Admtr, Ar8 Referring Physician: Admtr, [...] Recorded BCG vaccine 66 Recorded 1Result Comment: [facility] [id number] 2Result Comment: [facility] [id number] Medications Albuterol (Eqv-Proventil HFA) 90 mcg/inh inhalation aerosol 2 puffs, Inhalation, Every 6 hours, PRN NEEDED FOR WHEEZING/SOB, # 6.7 each, 5 Refills, [facility] 95582, 163, cm, 04/21/21 14:48:00 EDT, Height, 98, kg, 04/19/21 14:18:00 EDT, Dry Weight Start Date: 05/27/21 Status: Ordered amLODIPine 10 mg oral tablet 1 tablet, By Mouth, Daily, # 90 tablet, 1 Refills, [facility], 163, cm, 04/21/21 14:48:00 EDT,Height, 98, kg, [...] 02/18/21 15:11:00 EDT, Route to Pharmacy Electronically, [facility] 46426, 163, cm, 01/14/21 13:24:00 EDT, Height, 99, kg, 11/23/20 4:28:00 EDT, Dry Weight Start Date: 02/18/21 Status: Ordered losartan 50 mg oral tablet 50 mg, 1, tablet, By Mouth, Daily, # 90 tablet, Refills 1, Tot. Refills 1, Maintenance, 06/15/21 9:18:00 EST, Route to Pharmacy Electronically, [facility]/pharmacy #9101, Partial fill upon patient request if the prescription is for a schedule II opioid drug.... Start Date: 06/15/21 Stop Date: 12/12/21 Status: Ordered Multivitamin By Mouth, Daily, 0 Refills, Maintenance, 06/08/15 13:58:35 Start Date: 06/08/15 Status: Ordered sertraline 50 mg oral tablet 1 tablet, By Mouth, Daily, # 90 tablet, 1 Refills, [facility] 04994, 163, cm, 04/21/21 14:48:00 EDT,Height, 98, kg, 04/19/21 14:18:00 EDT, Dry Weight Start Date: 05/24/21 Status: Ordered Problem List Condition Effective Dates Status Health Status Inform ant Hyperlipidemia(Confirmed) Active Hypertension(Confirmed) Active Obese class II(Confirmed) Active Major depression, recurrent(Confirmed) Active Social History Social History Type Response Smoking Status Never smoker entered on: 05/14/15 Sex
--- OUTSIDE RECORDS SUMMARY | 2023-02-02 08:24 | XMS_ITS | Continuity of Care Document ---
Author Name Unknown Organization [facility] Address [address] [place] [address]- Care Team Providers Care Barrel Dedenting Machine Operator Name Role Phone Jimmy DELATORRE, Anastasia Primary Care Physician [phone] Encounter [facility] Date(s): 04/13/21 - 05/13/21 [facility] [address] [place] [address]- Allergies, Adverse Reactions, Alerts Substance Reaction Severity [...] 66 Recorded 1Result Comment: [facility] [id number] Medications Advair Diskus 250 mcg-50 mcg inhalation powder 1, puffs, Inhalation, 2 times a day, # 60 each, Refills 0, Tot. Refills 0, Maintenance, 04/21/21 16:25:00 EDT, Powder, Route to Pharmacy Electronically, [id number], [facility]/pharmacy #0315, 163, cm, 04/21/21 14:48:00 EDT, Height,... Start Date: 04/21/21 Status: Ordered Albuterol (Eqv-Proventil HFA) 90 mcg/inh inhalation aerosol 2 puffs, Inhalation, Every 6 hours, PRN NEEDED FOR WHEEZING/SOB, # 6.7 each, 0 Refills, [facility] 61270, 163, cm, 04/21/21 14:48:00 EDT, Height, 98, kg, 04/19/21 14:18:00 EDT, Dry Weight Start Date: 05/04/21 Status: Ordered amLODIPine 10 mg oral tablet 10 mg, 1, tablet, By Mouth, Daily, # 90 tablet, Refills 1, Tot. Refills 1, Maintenance, 11/23/20 14:03:00 EDT, Route to Pharmacy Electronically, [facility]/pharmacy #0315, 163, cm, 11/23/20 4:28:00 EDT, [...] 0 Refills, Maintenance, 11/07/19 10:55:00 EDT,[facility], 158, cm, 10/29/19 14:34:00 EDT, Height Start Date: 11/07/19 Status: Ordered lisinopril 10 mg oral tablet 10 mg, 1, tablet, By Mouth, Daily, # 90 tablet, Refills 3, Tot. Refills 3, Maintenance, 01/14/21 14:16:00 EDT, Route to Pharmacy Electronically, [facility]/pharmacy #0315, Partial fill upon patient request if the prescription is for a schedule II opioid drug... Start Date: 01/14/21 Status: Ordered loratadine 10 mg oral tablet 1, tablet, By Mouth, Daily, # 90 tablet, Refills 1, Tot. Refills 0, Maintenance, 02/18/21 15:11:00 EDT, Route to Pharmacy Electronically, [facility], 163, cm, 01/14/21 13:24:00 EDT, Height, 99, [...] 0 Refills, Maintenance, 04/19/21 14:23:00 EDT, Tablet, [facility]/pharmacy #0315, Partial fill upon patient request if the prescription... Start Date: 04/19/21 Status: Ordered Zoloft 50 mg oral tablet 1 tablet = 50 mg, By Mouth, Daily, # 90 tablet, 1 Refills, Maintenance, 11/23/20 13:18:00 EDT, Tablet, [facility]/pharmacy #0315, 163, cm, 11/23/20 4:28:00 EDT, Height, 99, kg, 11/23/20 4:28:00 EDT, Dry Weight Start Date: 11/23/20 Status: Ordered Problem List Condition Effective Dates Status Health Status Inform ant Hyperlipidemia(Confirmed) Active Hypertension(Confirmed) Active Major depression, recurrent(Confirmed) Active Social History Social History Type Response Smoking Status Never smoker entered on: 05/14/15 Sex
--- OUTSIDE RECORDS SUMMARY | 2023-02-02 08:24 | XMS_ITS | Continuity of Care Document ---
Author Name Unknown Organization [facility] Adult Address [address] [place] [address]- Care Team Providers Care Career Counselor Name Role Phone Jimmy DELATORRE, Anastasia Primary Care Physician [phone] [place] [facility] [place](s): 11/21/20 - 12/21/20 [facility] Adult [address] [place] [address]- Allergies, Adverse Reactions, Alerts Substance Reaction Severity [...] Comment: [facility] [id number] Medications amLODIPine 10 mg oral tablet 10 mg, 1, tablet, By Mouth, Daily, # 90 tablet, Refills 1, Tot. Refills 1, Maintenance, 11/23/20 14:03:00 EDT, Route to Pharmacy Electronically, [facility]/pharmacy #0315, 163, cm, 11/23/20 4:28:00 EDT, [...]
--- OUTSIDE RECORDS SUMMARY | 2023-02-02 08:24 | XMS_ITS | Continuity of Care Document ---
Author Name Unknown Organization [facility] Adult Address [address] [place] [address]- Care Team Providers Care Feedmobile Driver Name Role Phone Jimmy DELATORRE, Anastasia Primary Care Physician [place] [facility] [place]/30/[place] - 04/29/21 [facility] Adult [address] [place] [address]- Allergies, Adverse Reactions, Alerts Substance Reaction Severity [...] BCG vaccine 66 Recorded 1Result Comment: [facility] [id number] Medications Advair Diskus 250 mcg-50 mcg inhalation powder 1, puffs, Inhalation, 2 times a day, # 60 each, Refills 0, Tot. Refills 0, Maintenance, 04/21/21 16:25:00 EDT, Powder, Route to Pharmacy Electronically, [id number], [facility]/pharmacy #0315, 163, cm, 04/21/21 14:48:00 EDT, Height,... Start Date: 04/21/21 Status: Ordered albuterol CFC free 90 mcg/inh inhalation aerosol 2, puffs, Inhalation, Every 6 hours, PRN, # 1 each, Refills 0, Tot. Refills 0, Maintenance, 04/07/21 15:35:00 EDT, Route to Pharmacy Electronically, [id number], [facility]/pharmacy#0315, 163, cm, 04/07/21 12:12:00 EDT, Height, 99,... Start Date: 04/07/21 Status: Ordered amLODIPine 10 mg oral tablet 10 mg, 1, tablet, By Mouth, Daily, # 90 tablet, Refills 1, Tot. Refills 1, Maintenance, 11/23/20 14:03:00 EDT, Route to Pharmacy Electronically, [facility]/pharmacy #0315, 163, cm, 11/23/20 4:28:00 [...] 0 Refills, Maintenance, 11/07/19 10:55:00 EDT,[facility], 158, cm, 10/29/19 14:34:00 EDT, Height Start Date: 11/07/19 Status: Ordered lisinopril 10 mg oral tablet 10 mg, 1, tablet, By Mouth, Daily, # 90 tablet, Refills 3, Tot. Refills 3, Maintenance, 01/14/21 14:16:00 EDT, Route to Pharmacy Electronically, [facility]/pharmacy #0315, Partial fill upon patient request if the prescription is for a schedule II opioid drug... Start Date: 01/14/21 Status: Ordered loratadine 10 mg oral tablet 1, tablet, By Mouth, Daily, # 90 tablet, Refills 1, Tot. Refills 0, Maintenance, 02/18/21 15:11:00 EDT, Route to Pharmacy Electronically, [facility], 163, cm, 01/14/21 13:24:00 EDT, Height, 99, [...] 0 Refills, Maintenance, 04/19/21 14:23:00 EDT, Tablet, [facility]/pharmacy #0315, Partial fill upon patient request if the prescription... Start Date: 04/19/21 Status: Ordered Zoloft 50 mg oral tablet 1 tablet = 50 mg, By Mouth, Daily, # 90 tablet, 1 Refills, Maintenance, 11/23/20 13:18:00 EDT, Tablet, [facility]/pharmacy #0315, 163, cm, 11/23/20 4:28:00 EDT, Height, 99, kg, 11/23/20 4:28:00 EDT, Dry Weight Start Date: 11/23/20 Status: Ordered Problem List Condition Effective Dates Status Health Status Inform ant Hyperlipidemia(Confirmed) Active Hypertension(Confirmed) Active Major depression, recurrent(Confirmed) Active Social History Social History Type Response Smoking Status Never smoker entered on: 05/14/15 Sex
--- OUTSIDE RECORDS SUMMARY | 2023-02-02 08:24 | XMS_ITS | Continuity of Care Document ---
Author Name Unknown Organization 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 Adult [address] [place] [address]- Encounter Diagnosis Cough(Discharge Diagnosis) - 04/21/21 Attending Physician: Anastasia Marquez MD Allergies, Adverse [...] Recorded BCG vaccine 66 Recorded 1Result Comment: [facility] [id number] Medications Advair Diskus 250 mcg-50 mcg inhalation powder 1, puffs, Inhalation, 2 times a day, # 60 each, Refills 0, Tot. Refills 0, Maintenance, 04/21/21 16:25:00 EDT, Powder, Route to Pharmacy Electronically, [id number], [facility], 163, cm, 04/21/21 14:48:00 EDT, Height,... Start Date: 04/21/21 Status: Ordered albuterol CFC free 90 mcg/inh inhalation aerosol 2, puffs, Inhalation, Every 6 hours, PRN, # 1 each, Refills 0, Tot. Refills 0, Maintenance, 04/07/21 15:35:00 EDT, Route to Pharmacy Electronically, [id number], [facility]/pharmacy#0315, 163, cm, 04/07/21 12:12:00 EDT, Height, 99,... Start Date: 04/07/21 Status: Ordered amLODIPine 10 mg oral tablet 10 mg, 1, tablet, By Mouth, Daily, # 90 tablet, Refills 1, Tot. Refills 1, Maintenance, 11/23/20 14:03:00 EDT, [facility], cm, 11/23/20 4:28:00 EDT, Height, [...] 01/14/21 14:16:00 EDT, [facility] Partial fill upon patient request if the prescription is for a schedule II opioid drug... Start Date: 01/14/21 Status: Ordered loratadine 10 mg oral tablet 1, tablet, By Mouth, Daily, # 90 tablet, Refills 1, Tot. Refills 0, Maintenance, 02/18/21 15:11:00 EDT, Route to Pharmacy Electronically, [facility] 71078, 163, cm, 01/14/21 13:24:00 EDT, Height, 99, [...] 0 Refills, Maintenance, 04/19/21 14:23:00 EDT, Tablet, [facility]/pharmacy #0315, Partial fill upon patient request if the prescription... Start Date: 04/19/21 Status: Ordered Zoloft 50 mg oral tablet 1 tablet = 50 mg, By Mouth, Daily, # 90 tablet, 1 Refills, Maintenance, 11/23/20 13:18:00 EDT, Tablet, [facility]/pharmacy #0315, 163, cm, 11/23/20 4:28:00 EDT, Height, 99, kg, 11/23/20 4:28:00 EDT, Dry Weight Start Date: 11/23/20 Status: Ordered Problem List Condition Effective Dates Status Health Status Inform ant Hyperlipidemia(Confirmed) Active Hypertension(Confirmed) Active Major depression, recurrent(Confirmed) Active Diagnosis Diagnosis Type Effective Dates Health Status Clini domenic Service Informant Cough Discharge Diagnosis 04/21/21 Vital Signs Most recent to oldest [Reference Range]: 1 Height 163 cm (04/21/21 2:48 PM) Social History Social History Type Response Smoking Status Never smoker entered on: 05/14/15 Sex
--- OUTSIDE RECORDS SUMMARY | 2023-02-02 08:24 | XMS_ITS | Continuity of Care Document ---
Author Name Unknown Organization [facility] Adult Address [address] [place] [address]- Care Team Providers Care Stem Roller Or Crusher Operator Name Role Phone Jimmy DELATORRE, Anastasia Primary Care Physician [phone] Encounter [facility] [place] Date(s): 10/29/19 - 11/08/[address] [address]- [facility] Attending Physician: Rasheeda Castro Admitting Physician: AdmtrRasheeda [...] mg, By Mouth, Daily, # 90 tablet, 0 Refills, Maintenance, 11/07/19 14:54:00 EDT, [facility], 158, cm, 10/29/19 14:34:00 EDT, Height Start Date: 11/07/19 Status: Ordered Claritin 10 mg oral tablet 10 mg, 1, tablet, By Mouth, Daily, # 90 tablet, Refills 3, Tot. Refills 3, Maintenance, 11/01/19 7:21:00 EDT, Route to Pharmacy Electronically, [facility] #[facility], 158, cm, 10/29/19 14:34:00EDT, Height [...] 90 capsule, 0 Refills, Maintenance, 11/07/19 10:55:00 EDT,[facility] #[facility], 158, cm, 10/29/19 14:34:00 EDT, [...]
--- OUTSIDE RECORDS SUMMARY | 2023-02-02 08:24 | XMS_ITS | Continuity of Care Document ---
Author Name Unknown Organization [facility] Address [address] [place] [address]- Care Team Providers Care Leather Grader Name Role Phone Jimmy DELATORRE, Anastasia Primary Care Physician [phone] Encounter [facility] Date(s): 12/01/21 - 01/06/22 [facility] [address] [place] [address]- Attending Physician: Rox Salter MD Allergies, Adverse Reactions, Alerts Substance Reaction [...] Recorded BCG vaccine 66 Recorded 1Result Comment: [facility] [id number] 2Result Comment: [facility] [id number] Medications Albuterol (Eqv-Proventil HFA) 90 mcg/inh inhalation aerosol 2 puffs, Inhalation, Every 6 hours, PRN NEEDED FOR WHEEZING/SOB, # 6.7 each, 5 Refills, [facility] 10925, 163, cm, 04/21/21 14:48:00 EDT, Height, 98, kg, 04/19/21 14:18:00 EDT, Dry Weight Start Date: 05/27/21 Status: Ordered amLODIPine 10 mg oral tablet 1 tablet, By Mouth, Daily, # 90 tablet, 1 Refills, [facility], 163, cm, 07/01/21 16:10:00 EST,Height, 98, kg, [...] tablet, Refills 1, Route to Pharmacy Electronically, [facility], 163, cm, 07/01/21 16:10:00 EST, Height, 98, kg, 04/19/21 14:18:00 EDT, Dry Weight Start Date: 08/16/21 Status: Ordered losartan 50 mg oral tablet 1 tablet, By Mouth, Daily, # 90 tablet, 1 Refills, [facility] 82893, 163, cm, 07/01/21 16:10:00 EST,Height, 98, kg, 04/19/21 14:18:00 EDT, Dry Weight Start Date: 12/01/21 Status: Ordered Multivitamin By Mouth, Daily, 0 Refills, Maintenance, 06/08/15 13:58:35 Start Date: 06/08/15 Status: Ordered sertraline 50 mg oral tablet 1 tablet, By Mouth, Daily, # 90 tablet, 1 Refills, [facility] 67[facility], 163, cm, 07/01/21 16:10:00 EST,Height, 98, kg, 04/19/21 14:18:00 EDT, Dry Weight Start Date: 11/15/21 Status: Ordered Problem List Condition Effective Dates Status Health Status Inform ant Hyperlipidemia(Confirmed) Active Hypertension(Confirmed) Active Obese class II(Confirmed) Active Major depression, recurrent(Confirmed) Active Social History Social History Type Response Smoking Status Never smoker entered on: 05/14/15 Sex
--- OUTSIDE RECORDS SUMMARY | 2023-02-02 08:24 | XMS_ITS | Continuity of Care Document ---
Author Name Unknown Organization [facility] Address [address] [place] [address]- Care Team Providers Care Facilities Officer Name Role Phone Jimmy DELATORRE, Anastasia Primary Care Physician Encounter 01/27/20 - 02/03/20 [facility] [address], [address] [place] [address]- [phone] Attending Physician: Anastasia Marquez MD Admitting Physician: Anastasia Marquez MD Referring Physician: Anastasia Marquez MD Allergies, Adverse [...] Daily, # 90 tablet, 0 Refills, Maintenance, 01/31/20 22:03:00 EDT, [facility] #[facility], 158, cm, 10/29/19 14:34:00 EDT, Height Start Date: 01/31/20 Status: Ordered Claritin 10 mg oral tablet 10 mg, 1, tablet, By Mouth, Daily, # 90 tablet, Refills 3, Tot. Refills 3, Maintenance, 11/01/19 7:21:00 EDT, Route to Pharmacy Electronically, [facility] #[facility], 158, cm, 10/29/19 14:34:00EDT, Height [...] 90 capsule, 0 Refills, Maintenance, 11/07/19 10:55:00 EDT,[facility] #[facility], 158, cm, 10/29/19 14:34:00 EDT, [...]
--- OUTSIDE RECORDS SUMMARY | 2023-02-02 08:24 | XMS_ITS | Continuity of Care Document ---
Author Name Unknown Organization 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 [address] [place] [address]- Attending Physician: Rox Salter MD Allergies, Adverse [...] 1Result Comment: [facility] [id number] 2Result Comment: [facility] [id number] Medications Albuterol (Eqv-Proventil HFA) 90 mcg/inh inhalation aerosol 2 puffs, Inhalation, Every 6 hours, PRN NEEDED FOR WHEEZING/SOB, # 6.7 each, 5 Refills, [facility] 99817, 163, cm, 04/21/21 14:48:00 EDT, Height, 98, kg, 04/19/21 14:18:00 EDT, Dry Weight Start Date: 05/27/21 Status: Ordered amLODIPine 10 mg oral tablet 1 tablet, By Mouth, Daily, # 90 tablet, 1 Refills, [facility], 163, cm, 07/01/21 16:10:00 EST,Height, 98, kg, [...] tablet, Refills 1, Route to Pharmacy Electronically, [facility] 82[facility], 163, cm, 07/01/21 16:10:00 EST, Height, 98, kg, 04/19/21 14:18:00 EDT, Dry Weight Start Date: 08/16/21 Status: Ordered losartan 50 mg oral tablet 1 tablet, By Mouth, Daily, # 90 tablet, 1 Refills, [facility] 68[facility], 163, cm, 07/01/21 16:10:00 EST,Height, 98, kg, 04/19/21 14:18:00 EDT, Dry Weight Start Date: 12/01/21 Status: Ordered Multivitamin By Mouth, Daily, 0 Refills, Maintenance, 06/08/15 13:58:35 Start Date: 06/08/15 Status: Ordered sertraline 50 mg oral tablet 1 tablet, By Mouth, Daily, # 90 tablet, 1 Refills, [facility], 163, cm, 07/01/21 16:10:00 EST,Height, 98, kg, 04/19/21 14:18:00 EDT, Dry Weight Start Date: 11/15/21 Status: Ordered Problem List Condition Effective Dates Status Health Status Inform ant Hyperlipidemia(Confirmed) Active Hypertension(Confirmed) Active Obese class II(Confirmed) Active Major depression, recurrent(Confirmed) Active Social History Social History Type Response Smoking Status Never smoker entered on: 05/14/15 Sex
--- OUTSIDE RECORDS SUMMARY | 2023-02-02 08:24 | XMS_ITS | Continuity of Care Document ---
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 Impersonator Name Role Phone Jimmy DELATORRE, Anastasia Primary Care Physician [phone] [place] [facility] [place]s): 04/23/21 - 05/23/21 [facility] Adult [address] [place] [address]- Allergies, Adverse Reactions, Alerts Substance Reaction Severity [...] Recorded 1Result Comment: [facility] [id number] Medications Advair Diskus 250 mcg-50 mcg inhalation powder 1, puffs, Inhalation, 2 times a day, # 60 each, Refills 0, Route to Pharmacy Electronically, [id number], [facility] 46231, 163, cm, 04/21/21 14:48:00 EDT, Height, 98, kg, 04/19/21 14:18:00 EDT, Dry Weight Start Date: 05/18/21 Status: Ordered Albuterol (Eqv-Proventil HFA) 90 mcg/inh inhalation aerosol 2 puffs, Inhalation, Every 6 hours, PRN NEEDED FOR WHEEZING/SOB, # 6.7 each, 0 Refills, [facility] 90351, 163, cm, 04/21/21 14:48:00 EDT, Height, 98, kg, 04/19/21 14:18:00 EDT, Dry Weight Start Date: 05/04/21 Status: Ordered amLODIPine 10 mg oral tablet 10 mg, 1, tablet, By Mouth, Daily, # 90 tablet, Refills 1, Tot. Refills 1, Maintenance, 11/23/20 14:03:00 EDT, Route to Pharmacy Electronically, [facility]/pharmacy #0315, 163, cm, 11/23/20 4:28:00 EDT, [...] 0 Refills, Maintenance, 11/07/19 10:55:00 EDT,[facility], 158, cm, 10/29/19 14:34:00 EDT, Height Start Date: 11/07/19 Status: Ordered lisinopril 10 mg oral tablet 10 mg, 1, tablet, By Mouth, Daily, # 90 tablet, Refills 3, Tot. Refills 3, Maintenance, 01/14/21 14:16:00 EDT, Route to Pharmacy Electronically, [facility]/pharmacy #0315, Partial fill upon patient request if the prescription is for a schedule II opioid drug... Start Date: 01/14/21 Status: Ordered loratadine 10 mg oral tablet 1, tablet, By Mouth, Daily, # 90 tablet, Refills 1, Tot. Refills 0, Maintenance, 02/18/21 15:11:00 EDT, Route to Pharmacy Electronically, [facility] 08828, 163, cm, 01/14/21 13:24:00 EDT, Height, 99, [...] 0 Refills, Maintenance, 04/19/21 14:23:00 EDT, Tablet, [facility]/pharmacy #0315, Partial fill upon patient request if the prescription... Start Date: 04/19/21 Status: Ordered Zoloft 50 mg oral tablet 1 tablet = 50 mg, By Mouth, Daily, # 90 tablet, 1 Refills, Maintenance, 11/23/20 13:18:00 EDT, Tablet, [facility]/pharmacy #0315, 163, cm, 11/23/20 4:28:00 EDT, Height, 99, kg, 11/23/20 4:28:00 EDT, Dry Weight Start Date: 11/23/20 Status: Ordered Problem List Condition Effective Dates Status Health Status Inform ant Hyperlipidemia(Confirmed) Active Hypertension(Confirmed) Active Major depression, recurrent(Confirmed) Active Social History Social History Type Response Smoking Status Never smoker entered on: 05/14/15 Sex
--- OUTSIDE RECORDS SUMMARY | 2023-02-02 08:24 | XMS_ITS | Continuity of Care Document ---
Author Name Unknown Organization [facility] Adult Address [address] [place] [address]- Care Team Providers Care Egg Processor Name Role Phone Anastasia Marquez MD Primary Care Physician [place] [facility] [place]s): 05/19/22 - 05/26/22 [facility] Adult [address] [place] [address]- Encounter Diagnosis Hypertension(Discharge Diagnosis) - 05/19/22 Major depression, recurrent(Discharge Diagnosis) - 05/19/22 Attending Physician: Anastasia Marquez MD Allergies, Adverse [...] BCG vaccine 66 Recorded 1Result Comment: [facility] [id number] 2Result Comment: [facility] [id number] Medications Albuterol (Eqv-Proventil HFA) 90 mcg/inh inhalation aerosol 2 puffs, Inhalation, Every 6 hours, PRN NEEDED FOR WHEEZING/SOB, # 6.7 each, 5 Refills, [facility], 163, cm, 04/21/21 14:48:00 EDT, Height, 98, kg, 04/19/21 14:18:00 EDT, Dry Weight Start Date: 05/27/21 Status: Ordered amLODIPine 10 mg oral tablet 1 tablet, By Mouth, Daily, # 90 tablet, 0 Refills, Maintenance, 05/04/22 15:35:00 EDT, [facility], 163, cm, 07/01/21 16:10:00 EST, Height, 98, kg, 04/19/21 14:18:00 EDT, Dry Weight Start Date: 05/04/22 Status: Ordered CPAP Machine See Instructions, # [...] 6 Refills, Maintenance, 07/01/21 16:54:00 EST, Aerosol, [facility]/pharmacy #0315, Partial fill upon patient request if the prescription is for a schedule II opioid drug., 163, cm, 07/01/21 16:10:00 EST, Height, 9... Start Date: 07/01/21 Status: Ordered loratadine 10 mg oral tablet See Instructions, TAKE 1 TABLET BY MOUTH EVERY DAY, # 90 tablet, Refills 1, Instructions Replace Required Details, Route to Pharmacy Electronically, [facility], 163, cm, 07/01/21 16:10:00 EST, Height, 98, kg, 04/19/21 14:18:00 EDT, Dry Weight Start Date: 02/10/22 Status: Ordered losartan 50 mg oral tablet 1 tablet, By Mouth, Daily, # 90 tablet, 1 Refills, [facility], 163, cm, 07/01/21 16:10:00 EST,Height, 98, kg, 04/19/21 14:18:00 EDT, Dry Weight Start Date: 12/01/21 Status: Ordered Multivitamin By Mouth, Daily, 0 Refills, Maintenance, 06/08/15 13:58:35 Start Date: 06/08/15 Status: Ordered sertraline 50 mg oral tablet 1 tablet, By Mouth, Daily, # 90 tablet, 0 Refills, Maintenance, 05/04/22 15:35:00 EDT, [facility], 163, cm, 07/01/21 16:10:00 EST, Height, 98, kg, 04/19/21 14:18:00 EDT, Dry Weight Start Date: 05/04/22 Status: Ordered Problem List Condition Confirmation Course Effective Dates Status H ealth Status Informant Hyperlipidemia Confirmed Active Hypertension Confirmed Active Obese class II Confirmed Active Major depression, recurrent Confirmed Active Diagnosis Diagnosis Type Effective Dates Health Status Clinical Service Informant Hypertension Discharge Diagnosis 05/19/22 Major depression, recurrent Discharge Diagnosis 05/19/22 Vital Signs Most recent to oldest [Reference Range]: 1 2 Height 163 cm (05/19/22 3:16 PM) 163 cm (05/19/22 3:04 PM) Weight 104.1 kg (05/19/22 3:04 PM) Oxygen Saturation [94-100 %] 95 % (05/19/22 3:04 PM) Pulse Rate [55-90 bpm] 95 bpm *H* (05/19/22 3:04 PM) Body Mass Index [18.5-24.99 kg/m2] 39.18 kg/m2 *>HHI* (05/19/22 3:04 PM) Blood Pressure [90-138/55-84 mm Hg] 146/ 84mm Hg *H* (05/19/22 3:16 PM) 146/84mm Hg *H* (05/19/22 3:04 PM) Temperature [96.8-100.4 DegF] 98.3 DegF (05/19/22 3:04 PM) Mode of Delivery (Oxygen) Room air (05/19/22 3:04 PM) Blood pressure sites Arm, left (05/19/22 3:16 PM) Arm, left (05/19/22 3:04 PM) Temperature Route Oral (05/19/22 3:04 PM) Weight Obtained Via Patient/family state d (05/19/22 3:04 PM) Social History Social History Type Response Smoking Status Never smoker entered on: 05/14/15 Sex Patient Care team information Personnel Name: Anastasia Marquez MD Address: Address: [address] [place], [place] [address]
--- OUTSIDE RECORDS SUMMARY | 2023-02-02 08:24 | XMS_ITS | Continuity of Care Document ---
Author Name Unknown Organization [facility] Adult Address [address] [place] [address]- Care Team Providers Care L Tacker Name Role Phone Jimmy DELATORRE, Anastasia Primary Care Physician Encounter [facility] [place] Date(s): 01/14/21 - 01/21/21 [facility] Adult [address] [place] [id number]- Encounter Diagnosis Well adult exam(Discharge Diagnosis) - 01/14/21 Hypertension(Discharge Diagnosis) - 01/14/21 Major depression, recurrent(Discharge Diagnosis) - 01/14/21 Exposure to COVID-19 virus(Discharge Diagnosis) - 01/14/21 Attending Physician: Anastasia Marquez MD Allergies, Adverse [...] Recorded BCG vaccine 66 Recorded 1Result Comment: [facility] [phone] Medications amLODIPine 10 mg oral tablet 10 [...] 0 Refills, Maintenance, 11/07/19 10:55:00 EDT,[facility], 158, cm, 10/29/19 14:34:00 EDT, [...] opioid drug... Start Date: 01/14/21 Status: Ordered Multivitamin By Mouth, Daily, 0 [...] Service Informant Well adult exam Discharge Diagnosis 01/14/21 Hypertension Discharge Diagnosis 01/14/21 Major depression, recurrent Discharge Diagnosis 01/14/21 Exposure to COVID-19 virus Discharge Diagnosis 01/14/21 Vital Signs Most recent to oldest [Reference Range]: 1 Height 163 cm (01/14/21 1:24 PM) Weight 101 kg (01/14/21 1:24 PM) Oxygen Saturation [94-100 %] 97 % (01/14/21 1:24 PM) Pulse Rate [55-90 bpm] 92 bpm *H* (01/14/21 1:24 PM) Body Mass Index [18.5-24.99] 38.01 *>HHI* (01/14/21 1:24 PM) Blood Pressure [90-138/55-84 mm Hg] 139/ 84mm Hg *H* (01/14/21 1:24 PM) Mode of Delivery (Oxygen) Room air (01/14/21 1:24 PM) Blood pressure sites Arm, left (01/14/21 1:24 PM) Temperature Route Oral (01/14/21 1:24 PM) Weight Obtained Via Standing scale (01/14/21 1:24 PM) Social History Social History Type Response Smoking Status Never smoker entered on: 05/14/15 Sex
--- OUTSIDE RECORDS SUMMARY | 2023-02-02 08:24 | XMS_ITS | Continuity of Care Document ---
Author Name Unknown Organization [facility] Adult Address [address] [place] [address]- Care Team Providers Care Taper And Floater Name Role Phone Anastasia Marquez MD Primary Care Physician [phone] Encounter [facility] Date(s): 12/06/22 - 01/05/23 [facility] Adult [address] [place] [address]- Allergies, Adverse Reactions, Alerts Substance Reaction Severity Status diclofenac Active Seafood Active Immunizations Given and Recorded Vaccine Date Status Refusal Reason influenza virus vaccine, inactivated 1 06/19/22 Gi deborah influenza virus vaccine, inactivated 2 06/27/21 Gi deborah influenza virus vaccine, inactivated 3 06/22/20 Gi deborah influenza virus vaccine, inactivated 05/07/19 Richard rded influenza virus vaccine, inactivated 05/28/15 Give n [id number] 12y+ bivalent booster vax 05/12/22 Recorded SARS-CoV-2 mRNA (xsomosy-xlqf-bvlru) vax 03/02/22 Recorded SARS-CoV-2 (COVID-19) mRNA BNT-162b2 [...] 1Result Comment: [facility]: [id number] 2Result Comment: [facility] [id number] 3Result Comment: [facility] [id number] Medications amLODIPine 10 mg oral tablet 1 tablet, By Mouth, Daily, # 90 tablet, 1 Refills, Maintenance, 07/27/22 15:47:00 EST, [facility]/pharmacy#0315, 163, cm, 07/27/22 15:06:00 EST, Height, 98, kg, 04/19/21 14:18:00 EDT, Dry Weight Start Date: 07/27/22 Status: Ordered atenolol 50 mg oral tablet 50 mg, 1, tablet, By Mouth, Daily, # 90 tablet, Refills 1, Tot. Refills 1, Maintenance, 12/06/22 11:56:00 EDT, Route to Pharmacy Electronically, [facility]/pharmacy #[id number], Partial fill upon patient request if the prescription is for a schedule II opioid drug... Start Date: 12/06/22 Status: Ordered CPAP Machine See Instructions, # [...] EVERY DAY, # 90 tablet, Refills 1, Tot. Refills 1, 10/16/22 13:03:00 EDT, Instructions Replace Required Details, Route to Pharmacy Electronically, [facility]/pharmacy #0315, 163, cm, 07/27/22 15:06:00 EST, Height, 98,... Start Date: 10/16/22 Status: Ordered losartan 100 mg oral tablet 1 tablet, By Mouth, Daily, # 90 tablet, 1 Refills, Maintenance, 12/11/22 16:00:00 EDT, [facility] STORE 17758, 163, cm, 07/27/22 15:06:00 EST, Height, 98, kg, 04/19/21 14:18:00 EDT, Dry Weight Start Date: 12/11/22 Status: Ordered Multivitamin By Mouth, Daily, 0 Refills, Maintenance, 11/03/15 13:58:35 Start Date: 06/08/15 Status: Ordered sertraline [...] obesity (BMI 35.0-39.9) with comorbidity Confirmed Active Social History Social History Type Response Smoking Status Never smoker entered on: 05/14/15 Sex Patient Care team information Care Team Personnel Name: Anastasia Marquez MD Position: [facility] Physician - Primary Care Member Role: PCP Address: Address: [address] [place] [address]- Care Team Related Persons Name: BRANDON ZELAYA Address: home [address] [place] [address]
--- OUTSIDE RECORDS SUMMARY | 2023-02-02 08:24 | XMS_ITS | Continuity of Care Document ---
Author Name Unknown Organization [facility] [place] Address [address] [place] [address]- Care Team Providers Care Carbonation Equipment Tender Name Role Phone Jimmy DELATORRE, Anastasia Primary Care Physician Encounter [facility] Date(s): 12/23/20 - 01/22/21 [facility] [place] [address] [place] [address]- Attending Physician: Rasheeda Castro Admitting Physician: Rasheeda [...] BCG vaccine 66 Recorded 1Result Comment: [facility] [id number] Medications amLODIPine 10 mg oral tablet 10 mg, 1, tablet, By Mouth, Daily, # 90 tablet, Refills 1, Tot. Refills 1, Maintenance, 11/23/20 14:03:00 EDT, Route to Pharmacy Electronically, [facility]/pharmacy #0315, 163, cm, 11/23/20 4:28:00 [...] 0 Refills, Maintenance, 11/07/19 10:55:00 EDT,[facility], 158, cm, 10/29/19 14:34:00 EDT, Height Start Date: 11/07/19 Status: Ordered lisinopril 10 mg oral tablet 10 mg, 1, tablet, By Mouth, Daily, # 90 tablet, Refills 3, Tot. Refills 3, Maintenance, 01/14/21 14:16:00 EDT, Route to Pharmacy Electronically, [facility]/pharmacy #0315, Partial fill upon patient request if the prescription is for a schedule II opioid drug... Start Date: 01/14/21 Status: Ordered Multivitamin By Mouth, Daily, 0 Refills, Maintenance, 06/08/15 13:58:35 Start Date: 06/08/15 Status: Ordered Zoloft 50 mg oral tablet 1 tablet = 50 mg, By Mouth, Daily, # 90 tablet, 1 Refills, Maintenance, 11/23/20 13:18:00 EDT, Tablet, [facility]/pharmacy #0315, 163, cm, 11/23/20 4:28:00 EDT, Height, 99, kg, 11/23/20 4:28:00 EDT, Dry Weight Start Date: 11/23/20 Status: Ordered Problem List Condition Effective Dates Status Health Status Inform ant Hyperlipidemia(Confirmed) Active Hypertension(Confirmed) Active Major depression, recurrent(Confirmed) Active Social History Social History Type Response Smoking Status Never smoker entered on: 05/14/15 Sex
--- OUTSIDE RECORDS SUMMARY | 2023-02-02 08:24 | XMS_ITS | Continuity of Care Document ---
Author Name Unknown Organization [facility] Adult Address [address] [place] [address]- Care Team Providers Care Guest History Clerk Name Role Phone Jimmy DELATORRE, Anastasia Primary Care Physician [phone] Encounter [facility] Date(s): 10/29/19 - 11/05/[address] [address]- [facility] Encounter Diagnosis Well adult exam(Discharge Diagnosis) - 11/01/19 Hyperlipidemia(Discharge Diagnosis) - 10/29/19 Major depression, recurrent(Discharge Diagnosis) - 10/29/19 Hypertension(Discharge Diagnosis) - 10/29/19 Low vitamin D level(Discharge Diagnosis) - 11/01/19 Attending Physician: Anastasia Marquez MD Allergies, Adverse [...] EDT, Height Start Date: 10/29/19 Status: Ordered Claritin 10 mg oral tablet 10 mg, 1, tablet, By Mouth, Daily, # 90 tablet, Refills 3, Tot. Refills 3, Maintenance, 11/01/19 7:21:00 EDT, Route to Pharmacy Electronically, [facility], 158, cm, 10/29/19 14:34:00EDT, Height [...] mg, By Mouth, Daily, # 90 capsule, 3 Refills, Maintenance, 11/05/19 13:29:00 EDT,[facility] #[facility], 158, cm, 10/29/19 14:34:00 EDT, Height Start Date: 11/05/19 Status: Ordered Multivitamin By Mouth, Daily, 0 [...] Effective Dates Health Status Clinical Service Informant Hyperlipidemia Discharge Diagnosis 10/29/19 Major depression, recurrent Discharge Diagnosis 10/29/19 Hypertension Discharge Diagnosis 10/29/19 Well adult exam Discharge Diagnosis 11/01/19 Low vitamin D level Discharge Diagnosis 11/01/19 Vital Signs Most recent to oldest [Reference Range]: 1 2 Height 158 cm (10/29/19 2:34 PM) 158 cm (10/29/19 2:24 PM) Weight 99.8 kg (10/29/19 2:24 PM) Oxygen Saturation [94-100 %] 96 % (10/29/19 2:24 PM) Pulse Rate [55-90 bpm] 87 bpm (10/29/19 2:24 PM) Body Mass Index [18.5-24.99] 39.98 *>HHI* (10/29/19 2:24 PM) Blood Pressure [90-138/55-84 mm Hg] 142/ 80mm Hg *H* (10/29/19 2:34 PM) 144/86mm Hg *H* (10/29/19 2:24 PM) Temperature [96.8-100.4 DegF] 98.7 DegF (10/29/19 2:24 PM) Mode of Delivery (Oxygen) Room air (10/29/19 2:24 PM) Blood pressure sites Arm, right (10/29/19 2:34 PM) Arm, left (10/29/19 2:24 PM) Temperature Route Oral (10/29/19 2:24 PM) Weight Obtained Via Standing scale (10/29/19 2:24 PM) Social History Social History Type Response Smoking Status Never smoker entered on: 05/14/15 Sex
--- OUTSIDE RECORDS SUMMARY | 2023-02-02 08:24 | XMS_ITS | Continuity of Care Document ---
Author Name Unknown Organization [facility] Adult Address [address] [place] [address]- Care Team Providers Care Air Pollution Control Engineer Name Role Phone Anastasia Marquez MD Primary Care Physician Encounter [facility] Date(s): 12/03/20 - 12/10/20 [facility] Adult [address] [place] [address]- Encounter Diagnosis LLQ pain(Discharge Diagnosis) - 12/03/20 Attending Physician: Anastasia Marquez MD Allergies, Adverse [...] Recorded BCG vaccine 66 Recorded 1Result Comment: [facility] [id number] Medications amLODIPine 10 mg oral tablet 10 mg, 1, tablet, By Mouth, Daily, # 90 tablet, Refills 1, Tot. Refills 1, Maintenance, 11/23/20 14:03:00 EDT, Route to Pharmacy Electronically, [facility]/pharmacy #0315, 163, cm, 11/23/20 4:28:00 EDT, Height, 99, kg, 04/20/21 4:28:00 EDT, Dry Weight Start Date: 11/23/20 [...] Dates Health Status Clini domenic Service Informant LLQ pain Discharge Diagnosis 12/03/20 Vital Signs Most recent to oldest [Reference Range]: 1 Height 163 cm (12/03/20 7:34 AM) Weight 99.1 kg (12/03/20 7:34 AM) Oxygen Saturation [94-100 %] 98 % (12/03/20 7:34 AM) Pulse Rate [55-90 bpm] 84 bpm (12/03/20 7:34 AM) Body Mass Index [18.5-24.99] 37.3 *>HHI* (12/03/20 7:34 AM) Blood Pressure [90-138/55-84 mm Hg] 134/ 82mm Hg (12/03/20 7:34 AM) Temperature [96.8-100.4 DegF] 98.9 DegF (12/03/20 7:34 AM) Mode of Delivery (Oxygen) Room air (12/03/20 7:34 AM) Blood pressure sites Arm, left (12/03/20 7:34 AM) Temperature Route Oral (12/03/20 7:34 AM) Weight Obtained Via Standing scale (12/03/20 7:34 AM) Social History Social History Type Response Smoking Status Never smoker entered on: 05/14/15 Sex
--- OUTSIDE RECORDS SUMMARY | 2023-02-02 08:24 | XMS_ITS | Continuity of Care Document ---
Author Name Unknown Organization [facility] Address [address] [place] [address]- Care Team Providers Care Physics And Astronomy Professor Name Role Phone Jimmy DELATORRE, Anastasia Primary Care Physician Encounter [facility] Date(s): 12/13/20 - 01/12/21 [facility] [address] [place] [address] [id number] Allergies, Adverse Reactions, Alerts Substance Reaction Severity [...] Recorded BCG vaccine 66 Recorded 1Result Comment: [facility] [id number] Medications amLODIPine 10 mg oral tablet 10 mg, 1, tablet, By Mouth, Daily, # 90 tablet, Refills 1, Tot. Refills 1, Maintenance, 11/23/20 14:03:00 EDT, Route to Pharmacy Electronically, [facility]/pharmacy #0315, 163, cm, 11/23/20 4:28:00 EDT, [...] 1 Refills, Maintenance, 11/23/20 13:18:00 EDT, Tablet, [facility]/pharmacy #0315, 163, cm, 11/23/20 4:28:00 EDT, Height, 99, kg, 11/23/20 4:28:00 EDT, Dry Weight Start Date: 11/23/20 Status: Ordered Problem List Condition Effective Dates Status Health Status Inform ant Hyperlipidemia(Confirmed) Active Hypertension(Confirmed) Active Major depression, recurrent(Confirmed) Active Social History Social History Type Response Smoking Status Never smoker entered on: 05/14/15 Sex
--- OUTSIDE RECORDS SUMMARY | 2023-02-02 08:24 | XMS_ITS | Continuity of Care Document ---
Author Name Unknown Organization [facility] Adult Address [address] [place] [address]- Care Team Providers Care Production Expert Name Role Phone Jimmy DELATORRE, Anastasia Primary Care Phys[id number] - [facility]28[facility]21 [facility] Adult [address] [place] [address]- Attending Physician: Not on Staff, Attending MD Allergies, Adverse Reactions, Alerts Substance Reaction [...] BCG vaccine 66 Recorded 1Result Comment: [facility] [id number] Medications amLODIPine 10 mg oral tablet 10 mg, 1, tablet, By Mouth, Daily, # 90 tablet, Refills 1, Tot. Refills 1, Maintenance, 11/23/20 14:03:00 EDT, Route to Pharmacy Electronically, [facility]/pharmacy #0315, 163, cm, 11/23/20 4:28:00 EDT, Height, [...] 01/14/21 14:16:00 EDT, Route to Pharmacy Electronically, [facility]/pharmacy #0315, Partial fill upon patient request if the prescription is for a schedule II opioid drug... Start Date: 01/14/21 Status: Ordered Multivitamin By Mouth, Daily, 0 Refills, Maintenance, 06/08/15 13:58:35 Start Date: 06/08/15 Status: Ordered Zoloft 50 mg oral tablet 1 tablet = 50 mg, By Mouth, Daily, # 90 tablet, 1 Refills, Maintenance, 11/23/20 13:18:00 EDT, Tablet, [facility]/pharmacy #0315, 163, cm, 11/23/20 4:28:00 EDT, Height, 99, kg, 11/23/20 4:28:00 EDT, Dry Weight Start Date: 11/23/20 Status: Ordered Problem List Condition Effective Dates Status Health Status Inform ant Hyperlipidemia(Confirmed) Active Hypertension(Confirmed) Active Major depression, recurrent(Confirmed) Active Vital Signs Most recent to oldest [Reference Range]: 1 Pulse Rate [55-90 bpm] 93 bpm *H* (01/21/21 9:05 AM) Blood Pressure [90-138/55-84 mm Hg] 133/ 83mm Hg (01/21/21 9:05 AM) Social History Social History Type Response Smoking Status Never smoker entered on: 05/14/15 Sex
--- OUTSIDE RECORDS SUMMARY | 2023-02-02 08:24 | XMS_ITS | Continuity of Care Document ---
Author Name Unknown Organization [facility] Adult Address [address] [place] [address]- Care Team Providers Care Varnish Mixer Name Role Phone Jimmy DELATORRE, Anastasia Primary Care Physician En[facility] Date(s): 07/28/22 - 08/27/22 [facility] Adult [address] [place] [address]- Allergies, Adverse Reactions, Alerts Substance Reaction Severity Status diclofenac Active Seafood Active Immunizations Given and Recorded Vaccine Date Status Refusal Reason influenza virus vaccine, inactivated 1 06/19/22 Gi deborah influenza virus vaccine, inactivated 2 06/27/21 Gi deborah influenza virus vaccine, inactivated 3 06/22/20 Gi deborah influenza virus vaccine, inactivated 05/07/19 Richard rded influenza virus vaccine, inactivated 05/28/15 Give n [id number] 12y+ bivalent booster vax 05/12/22 Recorded SARS-CoV-2 mRNA (xqrwlso-iqvg-poazb) vax 03/02/22 Recorded SARS-CoV-2 (COVID-19) mRNA BNT-162b2 vac 05/28/21 Recorded SARS-CoV-2 (COVID-19) mRNA BNT-162b2 vac 11/13/20 Given SARS-CoV-2 (COVID-19) mRNA BNT-162b2 vac 10/23/20 Given Influenza Virus Vaccine (oldterm) 06/20/19 Recorde d tetanus-diphtheria toxoids (Td) 05/28/15 Given Varicella Virus Vaccine 02/03/15 Recorded Measles/Mumps/Rubella Virus Vaccine 02/03/15 Recor ded Poliovirus Vaccine, Inactivated 66 Recorded Poliovirus Vaccine, Inactivated 66 Recorded BCG vaccine 66 Recorded 1Result Comment: [facility]: [id number] 2Result Comment: [facility] [id number] 3Result Comment: [facility] [id number] Medications amLODIPine 10 mg oral tablet 1 tablet, By Mouth, Daily, # 90 tablet, 1 Refills, Maintenance, 07/27/22 15:47:00 EST, [facility]0315, 163, cm, 07/27/22 15:06:00 EST, Height, 98, kg, 04/19/21 14:18:00 EDT, Dry Weight Start Date: 07/27/22 Status: Ordered atenolol 50 mg oral tablet 50 mg, 1, tablet, By Mouth, Daily, # 90 tablet, Refills 1, Tot. Refills 1, Maintenance, 06/19/22 16:39:00 EST, Route to Pharmacy Electronically, [facility]/pharmacy #0315, Partial fill upon [...] 1 Refills, Maintenance, 06/19/22 16:38:00 EST, Tablet, [facility]/pharmacy #0315, Partial fill upon [...] Team Personnel Name: Anastasia Marquez MD Position: [facility] Primary Care Physician Member Role: PCP Address: Address: [address] [place] [address] [address] [place] [address]- Care Team Related Persons Name: BRANDON ZELAYA Address: home [address] [place] [address]
--- OUTSIDE RECORDS SUMMARY | 2023-02-02 08:24 | XMS_ITS | Continuity of Care Document ---
Author Name Unknown Organization [facility] Adult Address [address] [place] [address]- Care Team Providers Care Quebracho Tanner Name Role Phone Anastasia Marquez MD Primary Care Physician Encounter [facility] Date(s): 04/07/21 - 04/14/21 [facility] Adult [address] [place] [address]- Encounter Diagnosis Asthma(Discharge Diagnosis) - 04/11/21 Attending Physician: Anastasia Marquez MD Allergies, Adverse [...] Recorded BCG vaccine 66 Recorded 1Result Comment: [facility] [id number] Medications albuterol CFC free 90 mcg/inh inhalation aerosol 2, puffs, Inhalation, Every 6 hours, PRN, # 1 each, Refills 0, Tot. Refills 0, Maintenance, 04/07/21 15:35:00 EDT, Route to Pharmacy Electronically, [id number], [facility]/pharmacy#0315, 163, cm, 04/07/21 12:12:00 EDT, Height, 99,... Start Date: 04/07/21 Status: Ordered amLODIPine 10 mg oral tablet 10 mg, 1, tablet, By Mouth, Daily, # 90 tablet, Refills 1, Tot. Refills 1, Maintenance, 11/23/20 14:03:00 EDT, Route to Pharmacy Electronically, [facility]/pharmacy #0315, 163, cm, 11/23/20 4:28:00 EDT, Height, [...] 0 Refills, Maintenance, 11/07/19 10:55:00 EDT,[facility], 158, cm, 10/29/19 14:34:00 EDT, Height Start Date: 11/07/19 Status: Ordered lisinopril 10 mg oral tablet 10 mg, 1, tablet, By Mouth, Daily, # 90 tablet, Refills 3, Tot. Refills 3, Maintenance, 01/14/21 14:16:00 EDT, Route to Pharmacy Electronically, [facility]/pharmacy #0315, Partial fill upon patient request if the prescription is for a schedule II opioid drug... Start Date: 01/14/21 Status: Ordered loratadine 10 mg oral tablet 1, tablet, By Mouth, Daily, # 90 tablet, Refills 1, Tot. Refills 0, Maintenance, 02/18/21 15:11:00 EDT, Route to Pharmacy Electronically, [facility]ORE 79105, 163, cm, 01/14/21 13:24:00 EDT, Height, 99, [...] Dates Health Status Clini domenic Service Informant Asthma Discharge Diagnosis 04/11/21 Vital Signs Most recent to oldest [Reference Range]: 1 Height 163 cm (04/07/21 12:12 PM) Social History Social History Type Response Smoking Status Never smoker entered on: 05/14/15 Sex
--- OUTSIDE RECORDS SUMMARY | 2023-02-02 08:24 | XMS_ITS | Continuity of Care Document ---
Author Name Unknown Organization [facility] Adult Address [address] [place] [address]- Care Team Providers Care Mapping Analyst Name Role Phone Anastasia Marquez MD Primary Care Physician [place] [facility] Date(s): 06/27/21 - 07/04/21 [facility] Adult [address] [place] [address]- Encounter Diagnosis Hypertension(Discharge Diagnosis) - 06/30/21 Major depression, recurrent(Discharge Diagnosis) - 06/30/21 Attending Physician: Anastasia Marquez MD Allergies, Adverse [...] BCG vaccine 66 Recorded 1Result Comment: [facility] [id number] 2Result Comment: [facility] [id number] Medications Albuterol (Eqv-Proventil HFA) 90 mcg/inh inhalation aerosol 2 puffs, Inhalation, Every 6 hours, PRN NEEDED FOR WHEEZING/SOB, # 6.7 each, 5 Refills, [facility] 75588, 163, cm, 04/21/21 14:48:00 EDT, Height, 98, kg, 04/19/21 14:18:00 EDT, Dry Weight Start Date: 05/27/21 Status: Ordered amLODIPine 10 mg oral tablet 1 tablet, By Mouth, Daily, # 90 tablet, 1 Refills, [facility] 435[facility], 163, cm, 04/21/21 14:48:00 EDT,Height, 98, kg, [...] 02/18/21 15:11:00 EDT, Route to Pharmacy Electronically, [facility] 31941, 163, cm, 01/14/21 13:24:00 EDT, Height, 99, kg, 11/23/20 4:28:00 EDT, Dry Weight Start Date: 02/18/21 Status: Ordered losartan 50 mg oral tablet 50 mg, 1, tablet, By Mouth, Daily, # 90 tablet, Refills 1, Tot. Refills 1, Maintenance, 06/15/21 9:18:00 EST, Route to Pharmacy Electronically, [facility]/pharmacy #7512, Partial fill upon patient request if the prescription is for a schedule II opioid drug.... Start Date: 06/15/21 Stop Date: 12/12/21 Status: Ordered Multivitamin By Mouth, Daily, 0 Refills, Maintenance, 06/08/15 13:58:35 Start Date: 06/08/15 Status: Ordered sertraline 50 mg oral tablet 1 tablet, By Mouth, Daily, # 90 tablet, 1 Refills, [facility] 22635, 163, cm, 04/21/21 14:48:00 EDT,Height, 98, kg, 04/19/21 14:18:00 EDT, Dry Weight Start Date: 05/24/21 Status: Ordered Problem List Condition Effective Dates Status Health Status Inform ant Hyperlipidemia(Confirmed) Active Hypertension(Confirmed) Active Obese class II(Confirmed) Active Major depression, recurrent(Confirmed) Active Diagnosis Diagnosis Type Effective Dates Health Status Clinical Service Informant Hypertension Discharge Diagnosis 06/30/21 Major depression, recurrent Discharge Diagnosis 06/30/21 Vital Signs Most recent to oldest [Reference Range]: 1 Height 163 cm (06/27/21 12:17 PM) Weight 99.5 kg (06/27/21 12:17 PM) Oxygen Saturation [94-100 %] 98 % (06/27/21 12:17 PM) Pulse Rate [55-90 bpm] 87 bpm (06/27/21 12:17 PM) Body Mass Index [18.5-24.99] 37.45 *>HHI* (06/27/21 12:17 PM) Blood Pressure [90-138/55-84 mm Hg] 127/ 80mm Hg (06/27/21 12:17 PM) Temperature [96.8-100.4 DegF] 98.9 DegF (06/27/21 12:17 PM) Mode of Delivery (Oxygen) Room air (06/27/21 12:17 PM) Blood pressure sites Arm, left (06/27/21 12:17 PM) Temperature Route Oral (06/27/21 12:17 PM) Weight Obtained Via Standing scale (06/27/21 12:17 PM) Social History Social History Type Response Smoking Status Never smoker entered on: 05/14/15 Sex
--- OUTSIDE RECORDS SUMMARY | 2023-02-02 08:24 | XMS_ITS | Continuity of Care Document ---
Author Name Unknown Organization [facility] Adult Address [address] [place] [address]- Care Team Providers Care Territory Sales Manager Medical Name Role Phone Jimmy DELATORRE, Anastasia Primary Care Physician [phone] Encounter [facility] Date(s): 02/13/22 - 03/15/22 [facility] Adult [address] [place] [address]- Allergies, Adverse Reactions, Alerts Substance Reaction Severity [...] Recorded BCG vaccine 66 Recorded 1Result Comment: [facility] [id number] 2Result Comment: [facility] [id number] Medications Albuterol (Eqv-Proventil HFA) 90 mcg/inh inhalation aerosol 2 puffs, Inhalation, Every 6 hours, PRN NEEDED FOR WHEEZING/SOB, # 6.7 each, 5 Refills, [facility] 72011, 163, cm, 04/21/21 14:48:00 EDT, Height, 98, kg, 04/19/21 14:18:00 EDT, Dry Weight Start Date: 05/27/21 Status: Ordered amLODIPine 10 mg oral tablet 1 tablet, By Mouth, Daily, # 90 tablet, 1 Refills, [facility] 28[facility], 163, cm, 07/01/21 16:10:00 EST,Height, 98, kg, [...] Replace Required Details, Route to Pharmacy Electronically, [facility] 11010, 163, cm, 07/01/21 16:10:00 EST, Height, 98, kg, 04/19/21 14:18:00 EDT, Dry Weight Start Date: 02/10/22 Status: Ordered losartan 50 mg oral tablet 1 tablet, By Mouth, Daily, # 90 tablet, 1 Refills, [facility] 64195, 163, cm, 07/01/21 16:10:00 EST,Height, 98, kg, 04/19/21 14:18:00 EDT, Dry Weight Start Date: 12/01/21 Status: Ordered Multivitamin By Mouth, Daily, 0 Refills, Maintenance, 06/08/15 13:58:35 Start Date: 06/08/15 Status: Ordered sertraline 50 mg oral tablet 1 tablet, By Mouth, Daily, # 90 tablet, 1 Refills, [facility] 73604, 163, cm, 07/01/21 16:10:00 EST,Height, 98, kg, 04/19/21 14:18:00 EDT, Dry Weight Start Date: 11/15/21 Status: Ordered Problem List Condition Effective Dates Status Health Status Inform ant Hyperlipidemia(Confirmed) Active Hypertension(Confirmed) Active Obese class II(Confirmed) Active Major depression, recurrent(Confirmed) Active Social History Social History Type Response Smoking Status Never smoker entered on: 05/14/15 Sex
--- OUTSIDE RECORDS SUMMARY | 2023-02-02 08:24 | XMS_ITS | Continuity of Care Document ---
Author Name Unknown Organization [facility] Adult Address [address] [place] [address]- Care Team Providers Care Supervisor Webbing Name Role Phone Jimmy DELATORRE, Anastasia Primary Care Physician [phone] [place] [facility] [place]16[place]22 [place] 11[place]15/22 [facility] Adult [address] [place] [address]- Allergies, Adverse Reactions, Alerts Substance Reaction Severity Status diclofenac Active Seafood Active Immunizations Given and Recorded Vaccine Date Status Refusal Reason influenza virus vaccine, inactivated 1 06/19/22 Gi deborah influenza virus vaccine, inactivated 2 06/27/21 Gi deborah influenza virus vaccine, inactivated 3 06/22/20 Gi deborah influenza virus vaccine, inactivated 05/07/19 Richard rded influenza virus vaccine, inactivated 05/28/15 Give n [id number] 12y+ bivalent booster vax 05/12/22 Recorded SARS-CoV-2 mRNA ([id number]-[id number]) vax 03/02/22 Recorded SARS-CoV-2 (COVID-19) mRNA BNT-162b2 [...] BCG vaccine 66 Recorded 1Result Comment: [facility]: [id number] 2Result Comment: [facility] [id number] 3Result Comment: [facility] [phone] Medications amLODIPine 10 mg oral tablet 1 tablet, By Mouth, Daily, # 90 tablet, 1 Refills, Maintenance, 07/27/22 15:47:00 EST, [facility]/pharmacy#[id number], 163, cm, 07/27/22 15:06:00 EST, Height, 98, kg, 04/19/21 14:18:00 EDT, Dry Weight Start Date: 07/27/22 Status: Ordered atenolol 50 mg oral tablet 50 mg, 1, tablet, By Mouth, Daily, # 90 tablet, Refills 1, Tot. Refills 1, Maintenance, 06/19/22 16:39:00 EST, Route to Pharmacy Electronically, [facility]/pharmacy #[id number], Partial fill upon patient request if [...] Replace Required Details, Route to Pharmacy Electronically, [facility]/pharmacy #[id number], 163, cm, 07/27/22 15:06:00 EST, Height, 98,... Start Date: 10/16/22 Status: Ordered losartan 100 mg oral tablet 1 tablet = 100 mg, By Mouth, Daily, # 90 tablet, 1 Refills, Maintenance, 06/19/22 16:38:00 EST, Tablet, [facility]/pharmacy #0315, Partial fill upon patient request if [...] Team Personnel Name: Anastasia Marquez MD Position: [facility] Primary Care Physician Member Role: PCP Address: Address: [address] [place] [address] [address] [place] [address]- Care Team Related Persons Name: BRANDON ZELAYA Address: home [address] [facility] [address] [place] [id number]
--- OUTSIDE RECORDS SUMMARY | 2023-02-02 08:24 | XMS_ITS | Continuity of Care Document ---
Author Name Unknown Organization [facility] Adult Address [address] [place] [address]- Care Team Providers Care Lap Regulator Name Role Phone Anastasia Marquez MD Primary Care Physician Encounter [facility] [place] Date(s): 11/22/20 - 12/22/20 [facility] Adult [address] [place] [address]- Allergies, Adverse Reactions, Alerts Substance Reaction Severity [...] Recorded BCG vaccine 66 Recorded 1Result Comment: formerly named [facility] [phone] Medications amLODIPine 10 mg oral tablet 10 [...] Refills, Maintenance, 11/23/20 13:18:00 EDT, Tablet, [facility]/pharmacy #[id number], 163, cm, 11/23/20 4:28:00 EDT, Height, 99, kg, 11/23/20 4:28:00 EDT, Dry Weight Start Date: 11/23/20 Status: Ordered Problem List Condition Effective Dates Status Health Status Inform ant Hyperlipidemia(Confirmed) Active Hypertension(Confirmed) Active Major depression, recurrent(Confirmed) Active Social History Social History Type Response Smoking Status Never smoker entered on: 05/14/15 Sex
--- OUTSIDE RECORDS SUMMARY | 2023-02-02 08:24 | XMS_ITS | Continuity of Care Document ---
Author Name Unknown Organization [facility] Address [address] [place] [address]- Care Team Providers Care Vessel Operator Name Role Phone Jimmy DELATORRE, Anastasia Primary Care Physician Encounter [facility] Date(s): 12/07/21 - 01/06/22 [facility] [address] [place] [address]- Attending Physician: Admtr, [id number] Admitting Physician: Admtr, [...] Recorded BCG vaccine 66 Recorded 1Result Comment: [facility] [id number] 2Result Comment: [facility] [phone] Medications Albuterol (Eqv-Proventil HFA) 90 mcg/inh inhalation aerosol 2 puffs, Inhalation, Every 6 hours, PRN NEEDED FOR WHEEZING/SOB, # 6.7 each, 5 Refills, [id number], 163, cm, 04/21/21 14:48:00 EDT, Height, 98, kg, 04/19/21 14:18:00 EDT, Dry Weight Start Date: 05/27/21 Status: Ordered amLODIPine 10 mg oral tablet 1 tablet, By Mouth, Daily, # 90 tablet, 1 Refills, [id number], 163, cm, 07/01/21 16:10:00 EST,Height, 98, kg, [...] tablet, Refills 1, Route to Pharmacy Electronically, [id number], 163, cm, 07/01/21 16:10:00 EST, Height, 98, kg, 04/19/21 14:18:00 EDT, Dry Weight Start Date: 08/16/21 Status: Ordered losartan 50 mg oral tablet 1 tablet, By Mouth, Daily, # 90 tablet, 1 Refills, [facility], 163, cm, 07/01/21 16:10:00 EST,Height, 98, kg, 04/19/21 14:18:00 EDT, Dry Weight Start Date: 12/01/21 Status: Ordered Multivitamin By Mouth, Daily, 0 Refills, Maintenance, 06/08/15 13:58:35 Start Date: 06/08/15 Status: Ordered sertraline 50 mg oral tablet 1 tablet, By Mouth, Daily, # 90 tablet, 1 Refills, [id number], 163, cm, 07/01/21 16:10:00 EST,Height, 98, kg, 04/19/21 14:18:00 EDT, Dry Weight Start Date: 11/15/21 Status: Ordered Problem List Condition Effective Dates Status Health Status Inform ant Hyperlipidemia(Confirmed) Active Hypertension(Confirmed) Active Obese class II(Confirmed) Active Major depression, recurrent(Confirmed) Active Social History Social History Type Response Smoking Status Never smoker entered on: 05/14/15 Sex
[2023-02-02 09:19] VITALS: BMI 39.3
[2023-02-02 10:00] VITALS: BP 150/76; PULSE 71; RESP 16; TEMP 37.1; O2SAT 97
--- NOTE | 2023-02-02 11:18 | P.CONAN_ITS ---
[facility] Active Problems Active Problems: All Active Problems (Updated 02/02/23 @ 09:27 by Christina Mccormack) Tracheobronchitis (Acute) Past Medical History Medical History (Updated 02/02/23 @ 09:27 by Christina Mccormack) Asthma Hypertension Obstructive sleep apnea Family History Family history of problems with anesthesia: No Surgical History Surgical History (Updated 02/02/23 @ 09:27 by Christina Mccormack) H/O colonoscopy Hx laparoscopic cholecystectomy Hx of bilateral breast reduction surgery Hx of section Hx of hysterectomy History of Problems with Anesthesia: No Social History Social History Patient Tobacco Use Status: Never used Tobacco Use of substances other than those prescribed or required for medical reasons: No Are you DNR?: No Advance Directives: No Advance Directives Information Provided: Yes Meds Allergies Allergy/AdvReac Type Severity Reaction Status Date / Time diclofenac Allergy Severe throat Verified 02/02/23 09:27 swelling Active Medications: Current Medications Ondansetron HCl (Ondansetron Hcl 4 Mg/2 Ml Vial) 4 mg IVPUSH ONCE PRN PRN Reason: Nausea and Vomiting Home Medications Medication Instructions Recorded Confirmed Last Taken Type amlodipine 10 mg tablet 10 mg PO DAILY 03/24/21 02/02/23 02/02/23 History cholecalciferol (vitamin D3) 25 25 mcg PO DAILY 03/24/21 02/02/23 Unknown History mcg (1,000 unit) tablet loratadine 10 mg tablet 10 mg PO DAILY 03/24/21 02/02/23 Unknown History sertraline 50 mg tablet 50 mg PO DAILY 03/24/21 02/02/23 02/02/23 History 25 mg atenolol 50 mg tablet 50 mg PO DAILY 02/02/23 02/02/23 Unknown History losartan 100 mg tablet 100 mg PO DAILY 02/02/23 02/02/23 Unknown History Exam Exam Date and Time: February 02, 2023 111 Height,Weight and Vital Signs: Height 5 ft 4 in Weight 103.873 kg Last Vital Signs Temp 98.8 F 02/02/23 10:00 Pulse 71 02/02/23 10:00 Resp 16 02/02/23 10:00 BP 150/76 H 02/02/23 10:00 Pulse Ox 97 02/02/23 10:00 O2 Del Method Room Air 02/02/23 10:00 Airway Mallampati Class: III TM Dist: >3cm Neck ROM: Full Loose/Missing/Broken Teeth: No Heart: rrrr Lungs: clear Assessment and Plan Final Anesthetic Review Family History of Problems with Anesthesia: No History of Problems with Anesthesia: No ASA Class: II Final Preanesthetic Review: No Changes in Pt Med Stat, Meds/Allgs Chart Reviewed, Consent Obtained/Reviewed and Anes Risks/Benef Reviewed Patient Risk: Intermediate Procedure Risk: Low Anesthetic Plan Anesthetic Plan: MAC: Disposition: Standard PACU
--- NOTE | 2023-02-02 11:20 | MHC.SHP ---
Pre-Procedural Eval Section A Date of Service: 02/02/23 The patient is an INPATIENT: No Changes since office visit: No Cold of Flu in the past 2 weeks, No New Medical Problems, No Changes in Medication and No Patient answered all questions The History & Physical has been completed within 30 days and I have reviewed it.: Yes Section B Chief Complaint: screening Allergies: Allergies Allergy/AdvReac Type Severity Reaction Status Date / Time diclofenac Allergy Severe throat Verified 02/02/23 09:27 swelling Plan I have reviewed the history and physical and performed a pertinent physical examination on my patient. No changes have occurred unless specified. Time Spent With Patient Time: Total time managing care of this patient today ____ minutes.
[2023-02-02 12:35] VITALS: BP 107/57; PULSE 85; RESP 16; TEMP 36.3; O2SAT 97
--- NOTE | 2023-02-02 12:35 | P.BOP_ITS ---
Brief Operative Note Date of Service: 02/02/23 Pre-op diagnosis: SCREENING Post-op diagnosis: same Procedure: COLONOSCOPY Surgeon: Davon Guzman Anesthesia: MAC Was an General Service Technician used for this Procedure?: No Estimated blood loss (mL): 0 Pathology: none sent Condition: stable Disposition: PACU
[2023-02-02 12:50] VITALS: BP 157/71; PULSE 75; RESP 16; O2SAT 98
--- NOTE | 2023-02-02 12:56 | OP_ITS ---
DATE OF SERVICE: 02/02/2023 SURGEON: Davon Guzman MD INDICATIONS: Colon cancer screening. PREOPERATIVE DIAGNOSIS: POSTOPERATIVE DIAGNOSIS: PROCEDURE PERFORMED: Colonoscopy to the right colon. ESTIMATED BLOOD LOSS: COMPLICATIONS: ANESTHESIA: Monitored anesthesia care. ASSISTANTS: SPECIMENS: DESCRIPTION OF PROCEDURE: A history and physical were performed. The risks and benefits of the procedure were explained to the patient. Informed consent was obtained. The patient was placed in the left lateral decubitus position. A digital rectal exam was performed and was found to be normal. The Olympus pediatric video colonoscope was introduced into the rectum. The scope was advanced to the right colon, where further advancement was not possible due to looping in the sigmoid, despite application of abdominal wall pressure. Examination was performed. The scope was removed. She tolerated the procedure well. She was returned to the recovery area in stable condition. FINDINGS: The visualized colonic mucosa was normal. The ileocecal valve was identified, but the scope could not be advanced below it. It is estimated that 90% of the colon was examined. There was some liquid stool present, which limited the sensitivity of examination for detection of small polyps. No polyps were identified. The stool was washed and suctioned as best possible. There was moderate diverticulosis of the sigmoid with scattered diverticula throughout the remainder of the colon. Retroflexed examination showed some moderate-sized internal hemorrhoids. IMPRESSION: 1. Incomplete colonoscopy. 2. Diverticulosis. 3. The patient will be sent for a barium enema if she is agreeable for evaluation of the remaining part of the colon that was not examined. 4. Ten year screening exam pending radiology results. MD ANDREA Andrew/MODL / [id number] MTDD
[2023-02-02 13:05] VITALS: BP 139/52; PULSE 77; RESP 16; O2SAT 98
[2023-02-02 13:20] VITALS: BP 145/68; PULSE 77; RESP 16; TEMP 36.3; O2SAT 98
--- NOTE | 2023-02-02 16:29 | PC.NURSE ---
as per report from Angie Thomas patient taken to xray and awaiting return following barium enema, report received from radiology technicians that patient did well throughout procedure see one set of vital signs upon arrival to pacu and patient discharged from here.
[2023-02-02 16:35] VITALS: BP 155/78; PULSE 74; RESP 16; TEMP 36.6; O2SAT 97
== END 2023-02-02 16:40 | disposition home or self-care (01) ==
PROVIDERS: PCP Internal Medicine; Visit Provider Internal Medicine Gastroenterology
PROC: 0DJD8ZZ Inspection of Lower Intestinal Tract, Via Natural or Artificial Opening Endoscopic (ICD-10-PCS; CPT 45378; principal; 2023-02-02 10:10)
DX: Z12.11 Encounter for screening for malignant neoplasm of colon (principal); Z86.010 Personal history of colon polyps; K57.30 Diverticulosis of large intestine without perforation or abscess without bleeding; K64.8 Other hemorrhoids; K21.9 Gastro-esophageal reflux disease without esophagitis; Z90.49 Acquired absence of other specified parts of digestive tract; Z88.8 Allergy status to other drugs, medicaments and biological substances
CPT/HCPCS: 45378; 74280